=== PATIENT | female | born 1990 | race Caucasian/White ===

== ENCOUNTER → 2019-05-29 | Outpatient (CLI) | payer OTHER ==
[~2019-05-29] MED LIST: DOCU100C37 PO; IBUP-1780 PO; OXYC-465 PO; PREN-98 PO
--- NOTE | 2019-05-29 14:29 | Diagnostic Imaging Report ---
INDICATION: survey. TECHNIQUE: Multiple real-time grayscale images were obtained over the gravid uterus. COMPARISON: None FINDINGS: There is a single live fetus in a breech presentation. heart rate was recorded at 142 BPM. Placenta is anterior. Amniotic fluid volume is normal. survey demonstrates kidneys, bladder and stomach to be unremarkable. brain is unremarkable. There is a four-chamber heart. There is a three-vessel cord with normal insertion. spine is grossly unremarkable but suboptimally visualized today. Biometrical measurements are as follows: Biparietal 4.72 cm, age 20 weeks 2 days. Head circumference 17.20 cm, age 19 weeks 6 days. Abdominal circumference 15.35 cm, age 20 weeks 4 days. Femur length 3.19 cm, age 20 weeks 0 days. Sonographic estimate age: 20 weeks 2 days. Sonographic estimated date of delivery: 10/14/2019. Estimated Weight: 339 gm (+/- 50 gm). LMP percentile: 67%. heart rate: 142 beats per minute. number: 1 of 1. IMPRESSION: Single live IUP 20 weeks 2 days gestational age. Estimated date of confinement sonographically is 10/14/2019. Dictated by: Dictated on workstation # [id number]
== END ==
LOC: RAD 12:10
PROVIDERS: ATTEND Obstetrics & Gynecology
DX: Z36.9 Encounter for antenatal screening, unspecified (principal); Z3A.20 20 weeks gestation of pregnancy
CPT/HCPCS: 76805

== ENCOUNTER 2019-10-06 05:41 | Outpatient (RCR) | payer OTHER ==
[~2019-10-06] VITALS: Wt 83.6 kg
== END 2019-10-06 10:36 | disposition home or self-care (01) ==
LOC: PREOP 05:41
PROVIDERS: ATTEND Obstetrics & Gynecology
DX: Z01.812 Encounter for preprocedural laboratory examination (principal); Z20.828 Contact with and (suspected) exposure to other viral communicable diseases
CPT/HCPCS: 87635

== ENCOUNTER 2019-10-09 04:00 | Inpatient (IN) | payer OTHER ==
[2019-10-09] VITALS (8 sets, daily range): BP systolic 104–122; BP diastolic 59–79
[~2019-10-09] VITALS: Ht 156 cm; Wt 82.6 kg
--- NOTE | 2019-10-09 11:15 | NUR ---
TYLER GONZALES admitted to room 3314-1, with an admitting diagnosis of repeat section, on 10/09/19 from registration via ambulation, accompanied by s/o. TYLER OGNZALES introduced to surroundings, call light, bed controls, phone, TV, temperature control, lights, meal times, smoking policy, visitor policy, side rail policy, bathrooms and showers. Patient Rights given to patient in the handbook. TYLER GONZALES verbalizes understanding that [facility] is not responsible for the loss or damage to any personal effects or valuables that are kept in the patients posession during their hospitalization. The following Patient Care Plans were discussed with the patient: Discharge Planning, pain management, preop and postop care. TYLER GONZALES verbalizes understanding of Interdisciplinary Patient Education. Patient and/or family were informed about the Rapid Response Team and its purpose.
--- NOTE | 2019-10-09 11:30 | NUR ---
this RN remaining at bedside attempting to obtained constant FHR tracing. movement noted by RN and reported by mother. FHR noted periodically during readjustments. 1135 NUrsery RN at bedside attempting to help trace FHR. 8911-5186 small window of tracing of FHR. baseline 135 with acceleration. moderate variability.
--- NOTE | 2019-10-09 12:15 | NUR ---
anesthesia at bedside reviewing poc with use of language line. 1235 this Rn used language line to get consent signed and admission work completed.
[2019-10-09] MEDS ORDERED: FAMOTIDINE 20MG/2ML IV (PEPCID) ONE (12:35)
[2019-10-09] MEDS ORDERED: CITRIC ACID/SOB CIT (BICITRA) 30 ML UDC ONE (12:35)
[2019-10-09] MEDS ORDERED: ceFAZolin 2 GM IV Premixed 50 ML ONE (12:35)
[2019-10-09] MEDS ORDERED: METOCLOPRAMIDE INJ 10 MG/2 ML (REGLAN) ONE (12:35)
[2019-10-09] MEDS ORDERED: DEXAMETHASONE 10 MG/ML (DECADRON) 1 ML VIAL ONE (12:37)
[2019-10-09] MEDS ORDERED: KETOROLAC 30 MG/ML VIAL ONE (12:37)
[2019-10-09] MEDS ORDERED: ONDANSETRON 4 MG/2 ML (SDV) Z0FRAN ONE (12:37)
[2019-10-09] MEDS ORDERED: fentaNYL INJECTION 100 MCG/2 ML AMP ONE (12:37)
[2019-10-09] MEDS ORDERED: BUPIVACAINE 0.5% 30 ML (SENSORCAINE) VIAL ONE (12:37)
[2019-10-09] MEDS ORDERED: OXYTOCIN PRE-MIX DRIP 1,000 ML IV ONE (12:39)
--- NOTE | 2019-10-09 12:42 | History & Physical-OB ---
OB - Chief Complaint & HPI Date/Time Date of Admission: Date of Admission: Oct 09, 2019 at 11:04 Date seen by a Provider: Oct 09, 2019 Time Seen by a Provider: 12:35 Chief Complaint/History OB-Reason for Admission/Chief: Section (2) Hx : 2 Hx Para: 1 Expected Date of Delivery: Oct 17, 2019 Gestational Age in Weeks: 38 Gestational Age in Days: 6 Indication for : malpresentation Admission Nurse Assessment Rev: Yes Allergies and Home Medications Allergies Coded Allergies: No Known Drug Allergies (Unverified , 10/05/19) Home Medications Vit37/Iron/Folic Acid 1 Each Tab.chew, 1 EACH PO DAILY, (Reported) Patient Home Medication List Home Medication List Reviewed: Yes OB - History Hx of Present Care: Yes Ultrasounds: Normal mid trimester US Obstetrical Complications: Gestational Diabetes Medical Complications: None Delivery History Hx Blood Disorders: No Adverse Rxn to Tranfusion: No (N/A) Patient Past Medical History n/a Social History/Family History HIV/AIDS: No Sexually Transmitted Disease: No Immunizations Tetanus Booster (TDap): Less than 5yrs Date of Influenza Vaccine: Jan 28, 2015 OB - Admission Exam Physical Exam HEENT: NCAT Heart: Rhythm Normal Lungs: Clear Abdomen: Gravid Extremities: Normal Reflexes: Normal Heart Rate: 130's Accelerations: Accelerations Present Decelerations: No Decelerations Short Term Variability: Present Chcf Variability: Average (6-25) Contractions on Admission: >10 Minutes Apart Intensity: Mild OB - Assessment/Plan/Diagnosis Assessment Assessment: section Admission Dx 29 yo @ 38.6 weeks Previous GDMA1 Admission Status: Inpatient Order (span 2 midnights) Reason for Inpatient Admission: Repeat Plan Plan: Section ANGELA JUAREZ DO Oct 09, 2019 12:42
[2019-10-09] MEDS ORDERED: ceFAZolin 2 GM IV Premixed 50 ML IV ONE (12:45)
--- NOTE | 2019-10-09 12:45 | NUR ---
DR JUAREZ AT BEDSIDE. BEDSIDE SONOGRAM TO CONFIRM POSITION.
[2019-10-09] MEDS ORDERED: LACTATED RINGERS 1,000 ML IV PRN (12:47)
[2019-10-09] MEDS: LACTATED RINGERS 1,000 ML IV PRN ×2 (12:50→13:19)
--- NOTE | 2019-10-09 12:50 | NUR ---
EFM off. ambulated to OR with surgery staff for section.
[2019-10-09 12:51] LABS: BASOPHILS % (AUTO) 0 % (0-10); EOSINOPHILS # (AUTO) 0.1 10^3/uL (0.0-0.3); EOSINOPHILS % (AUTO) 1 % (0-10); HEMATOCRIT 40 % (35-52); HEMOGLOBIN 13.4 G/DL (11.5-16.0); LYMPHOCYTES # (AUTO) 1.6 X 10^3 (1.0-4.0); LYMPHOCYTES % (AUTO) 15 % (12-44); MEAN CORPUSCULAR HEMOGLOBIN 29 PG (25-34); MEAN CORPUSCULAR HGB CONC 33 G/DL (32-36); MEAN CORPUSCULAR VOLUME 86 FL (80-99); MEAN PLATELET VOLUME 11.1 FL (7.4-10.4); MONOCYTES % (AUTO) 9 % (0-12); NEUTROPHILS # (AUTO) 8.3 X 10^3 (1.8-7.8); NEUTROPHILS % (AUTO) 75 % (42-75); PLATELET COUNT 201 10^3/uL (130-400); RED CELL DISTRIBUTION WIDTH 14.1 % (10.0-14.5); WHITE BLOOD COUNT 11.1 10^3/uL (4.3-11.0)
[2019-10-09] MEDS ORDERED: CITRIC ACID/SOB CIT (BICITRA) 30 ML UDC PO ONE (13:00)
[2019-10-09] MEDS ORDERED: METOCLOPRAMIDE INJ 10 MG/2 ML (REGLAN) IV ONE (13:00)
[2019-10-09] MEDS ORDERED: CATHETER FLUSH 10 ML SYR IV PRN (13:00)
[2019-10-09] MEDS ORDERED: OXYTOCIN PRE-MIX DRIP 500 ML IV SCH (13:07)
[2019-10-09] MEDS ORDERED: ONDANSETRON 4 MG/2 ML (SDV) Z0FRAN IVP PRN (13:15)
[2019-10-09] MEDS: KETOROLAC 30 MG/ML VIAL IV SCH ×2 (13:15→19:59)
[2019-10-09] MEDS ORDERED: MEASLES,MUMPS,RUBELLA 1 EA INJ SC SCH (13:15)
[2019-10-09] MEDS ORDERED: TETANUS,DIPTH,PERTUSS P/F (BOOSTRIX) 0.5 ML VIAL IM SCH (13:15)
[2019-10-09] MEDS ORDERED: HYDROcodone/APAP 5 MG/325 MG (LORTAB) TAB PO PRN (13:15)
--- OUTSIDE RECORDS SUMMARY | 2019-10-09 13:28 | XMS REPORT ---
Author Author Cherie DONOVAN Organization [facility] Address [address] [place] [address] Care Team Providers Care Foiling Machine Operator Name Role Phone BRIANNA DONOVAN Unavailable PROBLEMS Type Condition ICD9-CM Code [id number]-XR Code Onset Dates Condition S tatus SNOMED Code Problem Tension headache G44.209 Active 398 421013 Problem Neuropathy G62.9 Active 315480571 Problem Peptic ulcer disease K27.9 Active 57215132 Problem Abnormal quad screen O28.0 Active 075998495 Problem History of section Z98.89 Ac tive 260589363 Problem Surveillance of contraceptive injection Z30.42 Active 741330092 Problem Gastroesophageal reflux disease without esophagitis K21.9 Active 767499076 Problem Constipation, unspecified constipation type K59.00 Active 22676299 Problem Lumbago with sciatica, right side M54.41 Active 064087534 Problem Lumbago with sciatica, left side M54.42 Active 524613125 Problem Other chronic pain G89.29 Active 8 7534613 Problem Lumbago with sciatica, unspecified side M54.40 Active 582385109 ALLERGIES Substance Reaction Event Type Date Status Penicillin V Potassium rash Drug Allergy July, Activ e ENCOUNTERS Encounter Location Date Diagnosis [place] [address] [place] [id number] [place] [address] Oct, Constipation, unspecified co nstipation type K59.00 and Gastroesophageal reflux disease without esophagitis K21.9 [facility] [address] [place] [id number] [place] [address] July, Well woman exam Z01.419 and Muscle strain of chest wall, initial encounter S29.011A [place] [address] [address] [facility] [id number] [address] [place] [address] July, Neuralgia M79.2 [place] [address] [facility] [id number] [address] [place] [address] July, Lumbago with sciatica, unspe cified side M54.40 and Other chronic pain G89.29 [place] [address] [place] [id number] [place] [address] 10 Apr, 2017 Cough productive of purulent sputum R05 and Hemoptysis R04.2 [place] [address] [place] [id number] [place] [address] Dec, Encounter for screening for infections with a predominantly sexual mode of transmission Z11.3 [place] [address] [place] [id number] [place] [address] Dec, [place] [address] [place] [id number] [place] [address] Nov, Vaginal yeast infection B37. 3 ; Encounter for screening for infections with a predominantly sexual mode of transmission Z11.3 and Routine gynecological examination Z01.419 [place] [address] [place] [id number] [place] [address] Oct, Lumbago with sciatica, right side M54.41 ; Dysuria R30.0 ; Acute cystitis without hematuria N30.00 ; Lumbago with sciatica, left side M54.42 ; Dyshydrosis L30.1 and Vaginal yeast infection B37.3 [place] [address] [place] [id number] [place] [address] Oct, [place] [address] [facility] [id number] [address] [place] [address] Sep, [place] [address] [place] [id number] [place] [address] Sep, Dysuria R30.0 and Yeast infe ction B37.9 [place] [address] [place] [id number] [place] [address] Aug, [facility] [address] [address] 09 Aug, 2016 Other chest pain R07.89 ; Ch est pain, musculoskeletal R07.89 and 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 [address] May, Neuropathy G62.9 ; Peptic ul cer disease K27.9 and ARTURO (secretory otitis media), right H65.91 [facility] [address] [id number] [place] [id number] May, [place] [address] [address] May, Epigastric pain R10.13 ; Naz ropathy G62.9 and Peptic ulcer disease K27.9 [facility] [address] [place] [id number] [place] [id number] Jan, Dental examination Z01.[address] [address] Dec, Encounter for routine gyneco logical examination with Papanicolaou smear of cervix Z01.[address] [address] Dec, Encounter to establish care Z76.89 ; Tension headache G44.209 ; Other fatigue R53.83 and Vertigo R42 [address] [address] Nov, Encounter for Depo-Provera c ontraception Z30.42 [facility] [address] [place] [id number] [place] [id number] Oct, Dental examination Z01.20 [facility] [address] [address] Aug, Encounter for Depo-Provera c ontraception Z30.42 [facility] [address] [address] July, Acute low back pain without sciatica, unspecified back pain laterality M54.5 ; Rectal bleeding K62.5 and Dysuria R30.[address] [address] 03 May, 2015 Routine follow-up Z39.2 ; Encounter for counseling regarding contraception Z30.9 ; Surveillance of contraceptive injection Z30.42 ; Patient is a currently breast-feeding mother Z39.1 ; Chills (without fever) R68.83 and History of section Z98.[address] [address] Apr, Encounter for supervision of normal first , third trimester Z34.03 and 37 weeks gestation of Z3A.[address] [address] Apr, screening for stre ptococcus B Z36 ; 36 weeks gestation of Z3A.36 and Encounter for supervision of normal first , third trimester Z34.[address] [address] Mar, Encounter for supervision of normal first , third trimester Z34.03 and 34 weeks gestation of Z3A.[address] [address] Mar, Encounter for supervision of normal first , third trimester Z34.03 and 32 weeks gestation of Z3A.[address] [address] Jan, Encounter for supervision of normal first , third trimester Z34.03 ; 29 weeks gestation of Z3A.29 and Encounter for immunization Z23 [address] [address] Dec, Encounter for supervision of normal first , second trimester Z34.02 ; Encounter for immunization Z23 and with 25 completed weeks gestation Z3A.[address] [address] Dec, [facility] [address] [id number] [address] [place] [address] Dec, Encounter for supervision of normal first , second trimester Z34.02 ; Supervision of normal first V22.0 and 21 weeks gestation of Z3A.21 [facility] [address] [id number] [address] [place] [address] 28 Nov, 2014 [facility] [address] [id number] [address] [place] [address] 15 Nov, 2014 Abnormal quad screen 796.5 a nd Short cervix 622.5 [place] [address] [id number] [address] [place] [address] 11 Nov, 2014 Supervision of normal first V22.0 [facility] [address] [id number] [address] [place] [address] Nov, Abnormal quad screen 796.5 [facility] [address] [id number] [address] [place] [address] Nov, , normal first V22. 0 [facility] [address] [id number] [address] [place] [address] Oct, [facility] [address] [id number] [address] [place] [address] Oct, Diarrhea 787.91 [facility] [address] [id number] [address] [place] [address] Oct, Diarrhea 787.91 [facility] [address] [id number] [address] [place] [address] Oct, Diarrhea 787.91 and Pregnanc y, normal first V22.0 [facility] [address] [id number] [address] [place] [address] Sep, , normal first V22. 0 ; Pap test, as part of routine gynecological examination V76.2 and Screen for STD (sexually transmitted disease) V74.5 [facility] [address] [facility] [id number] [address] [address] Aug, Supervision of normal first V22.0 [facility] [address] [facility] [id number] [address] [address] Aug, test positive V72. 42 IMMUNIZATIONS No Known Immunizations SOCIAL HISTORY Never Assessed REASON FOR VISIT Numbness-twoodenMA, pt.burning on her lfet side of her face. and tingling on her neck and shoulder on both sides , and pt.states she had a real bad headache PLAN OF CARE Activity Details Follow Up 1 Week, prn Reason:if sympto ms worsen or not improving VITAL SIGNS Height 63 in 2017-08-23 Weight 155.9 lbs 2017-08-23 Temperature 98.1 degrees Fahrenheit 2017-08-23 Heart Rate 64 bpm 2017-08-23 Respiratory Rate 16 2017-08-23 BMI 27.61 kg/m2 2017-08-23 Blood pressure systolic 112 mmHg 2017-08-23 Blood pressure diastolic 72 mmHg 2017-08-23 MEDICATIONS Medication Instructions Dosage Frequency Start Date End Date Duration S lucia PredniSONE 20 mg Orally Once a day 2 tablets 24h July, July, 05 days Active RESULTS No Results PROCEDURES No Known procedures INSTRUCTIONS MEDICATIONS ADMINISTERED No Known Medications MEDICAL (GENERAL) HISTORY Type Description Date Medical History Abnormal quad screen Medical History History of section Medical History Peptic ulcer disease Medical History Lumbago with sciatica, right side Medical History Lumbago with sciatica, left side Medical History Other chronic pain Medical History Neuropathy Surgical History section 04/2015 Hospitalization History Childbirth/surgery
--- OUTSIDE RECORDS SUMMARY | 2019-10-09 13:28 | XMS REPORT ---
Author Author Cherie BERGER [facility] Address [address] [place] [address] Care Team Providers Care Tray Room Worker Name Role Phone SIDRA BERGER Unavailable PROBLEMS Type Condition ICD9-CM Code WDD11-PI Code Onset Dates Condition S tatus SNOMED Code Problem Tension headache G44.209 Active 398 876921 Problem Neuropathy G62.9 Active 458559591 Problem Peptic ulcer disease K27.9 Active 80488434 Problem Abnormal quad screen O28.0 Active 659333807 Problem History of section Z98.89 Ac tive 221713953 Problem Surveillance of contraceptive injection Z30.42 Active 429742328 Problem Gastroesophageal reflux disease without esophagitis K21.9 Active 798958386 Problem Constipation, unspecified constipation type K59.00 Active 60711824 Problem Lumbago with sciatica, right side M54.41 Active 931634754 Problem Lumbago with sciatica, left side M54.42 Active 718802103 Problem Other chronic pain G89.29 Active 8 6052556 Problem Lumbago with sciatica, unspecified side M54.40 Active 162688641 ALLERGIES Substance Reaction Event Type Date Status Penicillin V Potassium rash Drug Allergy July, Activ e ENCOUNTERS Encounter Location Date Diagnosis [place] [id number] [facility] [id number] [address] [place] [address] Oct, Constipation, unspecified co nstipation type K59.00 and Gastroesophageal reflux disease without esophagitis K21.9 [facility] [address] [facility] [id number] [address] [place] [address] July, Well woman exam Z01.419 and Muscle strain of chest wall, initial encounter S29.011A [place] [address] [facility] [id number] [address] [place] [address] July, Neuralgia M79.2 [place] [address] [facility] [id number] [address] [place] [address] July, Lumbago with sciatica, unspe cified side M54.40 and Other chronic pain G89.29 [place] [address] [facility] [id number] [address] [place] [address] 10 Apr, 2017 Cough productive of purulent sputum R05 and Hemoptysis R04.2 [place] [address] [place] [id number] [place] [address] Dec, Encounter for screening for infections with a predominantly sexual mode of transmission Z11.3 [place] [address] [place] [id number] [place] [address] Dec, [place] [address] [place] [id number] [place] [address] Nov, Vaginal yeast infection B37. 3 ; Encounter for screening for infections with a predominantly sexual mode of transmission Z11.3 and Routine gynecological examination Z01.419 [place] [address] [place] [id number] [place] [address] Oct, Lumbago with sciatica, right side M54.41 ; Dysuria R30.0 ; Acute cystitis without hematuria N30.00 ; Lumbago with sciatica, left side M54.42 ; Dyshydrosis L30.1 and Vaginal yeast infection B37.3 [place] [address] [facility] [id number] [address] [place] [address] Oct, [facility] [address] [facility] [id number] [address] [place] [address] Sep, [place] [address] [place] [id number] [place] [address] Sep, Dysuria R30.0 and Yeast infe ction B37.9 [facility] [address] 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 [place] [address] [address] Aug, [address] [address] May, Neuropathy G62.9 ; Peptic ul cer disease K27.9 and ARTURO (secretory otitis media), right H65.91 [facility] [address] [id number] [place], [facility] [id number] May, [place] [address] [place] [id number] [place] [address] May, Epigastric pain R10.13 ; Naz ropathy G62.9 and Peptic ulcer disease K27.9 [facility] [address] [id number] Jan, Dental examination Z01.[address] [address] Dec, Encounter for routine gyneco logical examination with Papanicolaou smear of cervix Z01.[address] [address] Dec, Encounter to establish care Z76.89 ; Tension headache G44.209 ; Other fatigue R53.83 and Vertigo R42 [address] [address] Nov, Encounter for Depo-Provera c ontraception Z30.42 [facility] [address] [place] [id number] [place] [id number] Oct, Dental examination Z01.20 [facility] [address] [place] [address] Aug, Encounter for Depo-Provera c ontraception Z30.42 [facility] [address] [address] July, Acute low back pain without sciatica, unspecified back pain laterality M54.5 ; Rectal bleeding K62.5 and Dysuria R30.[address] [address] 03 May, 2015 Routine follow-up Z39.2 ; Encounter for counseling regarding contraception Z30.9 ; Surveillance of contraceptive injection Z30.42 ; Patient is a currently breast-feeding mother Z39.1 ; Chills (without fever) R68.83 and History of section Z98.[address] [address] Apr, Encounter for supervision of normal first , third trimester Z34.03 and 37 weeks gestation of Z3A.[address] [address] Apr, screening for stre ptococcus B Z36 ; 36 weeks gestation of Z3A.36 and Encounter for supervision of normal first , third trimester Z34.[address] [address] Mar, Encounter for supervision of normal first , third trimester Z34.03 and 34 weeks gestation of Z3A.[address] [address] Mar, Encounter for supervision of normal first , third trimester Z34.03 and 32 weeks gestation of Z3A.[address] [address] Jan, Encounter for supervision of normal first , third trimester Z34.03 ; 29 weeks gestation of Z3A.29 and Encounter for immunization Z23 [address] [address] Dec, Encounter for supervision of normal first , second trimester Z34.02 ; Encounter for immunization Z23 and with 25 completed weeks gestation Z3A.[address] [place] [address] Dec, [facility] [address] [id number] [address] [place] [address] Dec, Encounter for supervision of normal first , second trimester Z34.02 ; Supervision of normal first V22.0 and 21 weeks gestation of Z3A.21 [facility] [address] [id number] [address] [place] [address] Nov, [facility] [address] [id number] [address] [place] [address] 15 Nov, 2014 Abnormal quad screen 796.5 a nd Short cervix 622.5 [place] [address] [facility] [id number] [address] [place] [address] 11 Nov, 2014 Supervision of normal first V22.0 [facility] [address] [id number] [address] [place] [address] Nov, Abnormal quad screen 796.5 [facility] [address] [id number] [address] [place] [address] Nov, , normal first V22. 0 [facility] [address] [id number] [address] [place] [address] Oct, [facility] [address] [facility] [id number] [address] [place] [address] Oct, Diarrhea 787.91 [facility] [address] [facility] [id number] [address] [place] [address] Oct, Diarrhea 787.91 [facility] [address] [facility] [id number] [address] [place] [address] Oct, Diarrhea 787.91 and Pregnanc y, normal first V22.0 [facility] [address] [id number] [address] [place] [address] Sep, , normal first V22. 0 ; Pap test, as part of routine gynecological examination V76.2 and Screen for STD (sexually transmitted disease) V74.5 [facility] [address] [facility] [id number] [place] [address] Aug, Supervision of normal first V22.0 [facility] [address] [facility] [id number] [place] [address] Aug, test positive V72. 42 IMMUNIZATIONS No Known Immunizations SOCIAL HISTORY Never Assessed REASON FOR VISIT Well Woman Exam -- michelle whiteside, patient states she has pain on rt armpit , sta shorty she has had this for a long time but the lump is getting bigger PLAN OF CARE Activity Details Follow Up 1 Year Reason:PAP VITAL SIGNS Height 63 in 2017-08-29 Weight 154.0 lbs 2017-08-29 Temperature 98.0 degrees Fahrenheit 2017-08-29 Heart Rate 70 bpm 2017-08-29 Respiratory Rate 18 2017-08-29 BMI 27.28 kg/m2 2017-08-29 Blood pressure systolic 116 mmHg 2017-08-29 Blood pressure diastolic 68 mmHg 2017-08-29 MEDICATIONS Medication Instructions Dosage Frequency Start Date End Date Duration S tatus Ibuprofen 800 MG Orally Three times a day as needed 1 tab let with food or milk as needed 30 Active RESULTS No Results PROCEDURES No Known [...]
--- OUTSIDE RECORDS SUMMARY | 2019-10-09 13:28 | XMS REPORT ---
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 [place] [employer] Address [address] [address] Care Team Providers Care Filter Press Tender Name Role Phone SHELLY PEREZ Unavailable Unavailable ADRIANNA, ANGEL Unavailable ADRIANNA, ANGEL Unavailable Unavailable SEAN GRAHAM Unavailable MADL, RAO Unavailable Unavailable NO, LOCAL PHYSICIAN Unavailable Unavailable REINIER ELLISE Unavailable ELLIS, VANDANA Unavailable ELLIS VANDANA Unavailable MADL, RAO Unavailable MADL, RAO Unavailable MADL, RAO Unavailable MADL, RAO Unavailable MADL, RAO Unavailable SIDRA BERGER Unavailable BRIANNA DONOVAN Unavailable SIDRA BERGER Unavailable SIDRA BERGER Unavailable SIDRA BERGER Unavailable Unavailable JARED, ROBBIE S Unavailable Unavailable ANGEL RODAS N Unavailable Unavailable FELECIARC THOMAS APRN A Unavailable Unavailable TRISTON CEE MD Unavailable Unavailable ANGEL RODAS MD Unavailable Unavailable ANGELA JUAREZ DO Unavailable Unavailable DO Armin GRAHAM PCP Unavailable Unavailable Unavailable Unavailable Unavailable Unavailable Unavailable Unavailable Unavailable Unavailable Unavailable Unavailable Allergies The data below is from unstructured sources Allergen Type Severity Reaction Last Updated No Known Drug Allergies 12/29/12 No known allergies. Encounters Encounter Date Encounter Type Encounter Diagnosis Care Provider Facility Start: Discharged Recurring DO SEAN leyva Via 10-06-2019 Work Phone: [place] [phone] End: 10-06-2019 Start: Patient encounter ANGELA JUAREZ DO [facility] 10-06-2019 [facility] End: 10-06-2019 Start: Patient encounter ANGEL Leyva [facility] 06-02-2019 procedure [facility] Start: Patient encounter ANGELA JUAREZ DO [facility] [place] 05-29-2019 [facility] Start: Patient encounter ANGEL Leyva [facility] 05-26-2019 procedure [facility] Start: Patient encounter NA NA [facility] ealt 03-18-2019 procedure [facility] ([id number]) Start: Patient encounter ANGEL RODAS [facility] ealt 01-20-2019 procedure [facility] (49105) Start: Patient encounter NA NA [facility] ealt 12-22-2018 procedure [facility] (40206) Start: Patient encounter NA NA [facility] 11-10-2018 procedure [facility] (63102) Start: [facility] encounter NA [facility] 11-10-2018 [facility] (99485) Start: Patient encounter NA NA [facility] 09-15-2018 procedure [facility] (43390) Start: Patient encounter ROBBIE JARED [facility]2018 [facility] ([id number]) Start: [facility] SIDRA Bond [facility] 11-04-2017 unspecified Start: Patient encounter ROBBIE JARED [facility] ealt 08-23-2017 procedure [facility] (24221) Start: Patient encounter ROBBIE JARED [facility] 08-02-2017 procedure Center [facility] (01607) Start: Patient encounter NA NA [facility] 04-10-2017 [facility] (69449) Start: Patient encounter ANGEL RODAS MD [facility] [place] 12-14-2014 [facility] Start: Patient encounter RC [employer]ZQUIER[employer] PRO[employer] SPECIALIST [facility] [place] 10-18-2014 [facility] Start: Patient encounter TRISTON CEE MD [facility] Via [facility] 07-30-2014 [facility] Encounter for ANGELA JUAREZ [facility] Medical Equipment The data below is from unstructured sourcesNo Medical Equipment Information available Goals Date Patient Goal Desired Activity/St ate Immunizations Immunizatio Immunization Notes Care Provider Facility n Date 02-02-2019 influenza, seasonal, NA NA [facility] (50461) Interventions No Information Medications Medication Drug Dates Sig Sig (Original) Class(es) (Normalized) esomeprazole 40 mg Proton Start: take 1 capsule Esom eprazole Magnesium 40 mg Orally Once delayed release oral Pump 11-04-2017 by mouth once a d ay on an empty stomach 1 capsule 06 capsule Inhibitor daily Oct, 2017 30 da y(s) Active (1 source) naproxen 500 mg oral Nonsteroid Start: take 1 tablet Nap roxen 500 mg Orally every 12 hrs 1 tablet al 08-02-2017 by mouth every tablet with food or milk as needed 12h (1 source) Anti-infla twelve hours at July, Sep, 30 days Active mmatory End: mealtime as Drug 10-01-2017 needed Polyethylene Glycol 3350 Start: Polyethylene Glycol 3350 17 gm/dose 17 gm/dose 11-04-2017 Orally every other day until BM are (1 source) regular, then prn 1 capful 06 Oct, 2017 End: Nov, 14 days Active 12-16-2017 predniSONE 20 mg oral Start: take 2 tablets PredniS ONE 20 mg Orally Once a day 2 tablet 08-23-2017 by mouth once tablets 24h July, July, 05 (1 source) daily days Active End: 08-28-2017 Vit37/Iron/Folic A [place] Active 1 Vit37/Iron/Folic Acid ORAL Daily (1 source) Payers The data below is from unstructured sources Payer Name Policy Number Subscriber Name Relationship Unknown Tyler Baumann Plan of Treatment Date Care Activity Detail Author Coronavirus Ab Bond [facility] [Units/volume] in [facility] ([id number]) Patient referral Bond [facility] ([id number]) Problems Active Problems Problem Problem Date Last Documented Episodic/Chr Provider Classificati Recorded Date onic on Esophageal Gastroesophageal reflux disease Chronic SIDRA disorders without esophagitis ; Translations: CELINE (8 sources) [Gastro-esophageal reflux disease without esophagitis] Other Phone: Female Infertility, female, of unspecified 10-06-2019 Chr onic TRISTON CEE infertility origin (4 sources) Residual 20 weeks gestation of 10-06-2019 Episodi c ANGELA codes; FENECH DO unclassified (5 sources) Past or Other Problems Problem Problem Date Last Documented Episodic/Chr Provider Classificati Recorded Date onic on Other Constipation, unspecified ; Episodic SIDRA gastrointest Translations: [ - Constipation, [place] inal unspecified constipation type disorders K59.00] Other (4 sources) Phone: Other Constipation ; Translations: Episodic SIDRA gastrointest [Constipation, unspecified CELINE inal constipation type] disorders Other (4 sources) Phone: Procedures The data below is from unstructured sources Procedure Coding System Code Date Office Visit, Est Pt., Level 4 CPT-4 07417 Nov 16, 2014 Results Test Name Value Interpreta Reference Facilit Date tion Range y Time not yet categorized on null BLO Negative Communi ty [facility] (30742) KET 12/18~clear~yellow~None~Negative~Negative~Neg Invalid Communi ative Interpreta ty tion Code [facility] (52694) Lot # [id number] Invalid Communi Interpreta ty tion Code [facility] (82551) SG 1.015 Invalid Communi Interpreta ty tion Code [facility] (78015) URO 0.2 Invalid Communi Interpreta ty tion Code [facility] (78357) laboratory on null pH (Bld) 7.0 [pH] Invalid Communi Interpreta ty tion Code [facility] (54860) laboratory on 2019-10-09 Basophils (Bld) 0.0 10*3/uL Negative 0.0-0.1 PENDING 10-08 [#/Vol] 10*3/uL LOCATIO [facility] 07:40-0 (62244) 400 Basophils/100 WBC 0 % Negative 0-10 % PENDING 10-08 (Bld) LOCATIO 020 [facility] 07:40-0 (85753) 400 Eosinophils (Bld) 0.1 10*3/uL Negative 0.0-0.3 PENDING 12-31 [#/Vol] 10*3/uL LOCATIO 020 [facility] 07:40-0 (45587) 400 Eosinophils/100 WBC 1 % Negative 0-10 % PENDING 12-31 (Bld) LOCATIO 020 [facility] 07:40-0 (71356) 400 Erythrocyte 14.1 % Negative 10.0-14.5 PENDING distribution width % [facility] (RBC) [Ratio] [facility] 07:40-0 (20544) 400 Hematocrit (Bld) 40 % Negative 35-52 % PENDING [Volume fraction] LOCATIO 020 [facility] 07:40-0 (12831) 400 Hemoglobin (Bld) 13.4 g/dL Negative 11.5-16.0 PENDING [Mass/Vol] g/[facility] 07:40-0 (27834) 400 Lymphocytes (Bld) 1.6 10*3/uL Negative 1.0-4.0 PENDING 12-31 [#/Vol] 10*3 LOCATIO 020 [facility] 07:40-0 (46485) 400 Lymphocytes/100 WBC 15 % Negative 12-44 % PENDING 12-31 (Bld) LOCATIO 020 [facility] 07:40-0 (31823) 400 MCH (RBC) [Entitic 29 pg Negative 25-34 pg PENDING -1 0-2 mass] LOCATIO 020 [facility] 07:40-0 (14386) 400 MCHC (RBC) 33 g/dL Negative 32-36 g/dL PENDING [Mass/Vol] LOCATIO 020 [facility] 07:40-0 (35538) 400 MCV (RBC) [Entitic 86 Negative 80-99 PENDING 07-1 0-2 vol] [foz_us] LOCATIO 020 [facility] 07:40-0 (10804) 400 Monocytes (Bld) 1.0 10*3/uL Negative 0.0-1.0 PENDING 10-08 [#/Vol] 10*3 [facility] 020 [facility] 07:40-0 (34339) 400 Monocytes/100 WBC 9 % Negative 0-12 % PENDING 10-08 (Bld) [facility] 020 [facility] 07:40-0 (95529) 400 Neutrophils (Bld) 8.3 10*3/uL High 1.8-7.8 PENDING 12-31 [#/Vol] 10*3 LOCATIO 020 N [facility] 07:40-0 (83934) 400 Neutrophils/100 WBC 75 % Negative 42-75 % PENDING 12-31 (Bld) LOCATIO 020 [facility] 07:40-0 (06773) 400 Platelet mean volume 11.1 High 7.4-10.4 PENDING (Bld) [Entitic vol] [foz_us] LOCATIO 020 [facility] 07:40-0 (47701) 400 Platelets (Bld) 201 10*3/uL Negative 130-400 PENDING 10-08 [#/Vol] 10*3/uL LOCATIO 020 [facility] 07:40-0 (20908) 400 RBC (Bld) [#/Vol] 4.69 10*6/uL Negative 4.35-5.85 PENDING 10*6/uL LOCATIO 020 [facility] 07:40-0 (84846) 400 WBC (Bld) [#/Vol] 11.1 10*3/uL High 4.3-11.0 PENDING 10*3/uL LOCATIO 020 [facility] 07:40-0 (48296) 400 laboratory on 2019-10-06 Coronavirus Ab Qn Negative Invalid Negative PENDING 10-05 (S) Interpreta LOCATIO 020 tion Code N [facility] 04:05-0 (58160) 400 laboratory on 2019-03-18 Beta HCG ( Positive Abnormal See Note: Commun i test) [facility] (70270) HCG.beta subunit Qn [id number] m[IU]/mL High mIU/mL Co mmuni ty [facility] (75807) not yet categorized on 2018-09-15 CLINICAL Normal Communi INFORMATION: ty [facility] (04855) COMMENT Invalid Communi Interpreta ty tion Code [facility] (90920) Date of previous Normal Communi biopsy ty [facility] (96669) Date of previous PAP Normal Communi smear ty [facility] (37910) Last menstrual Normal Communi period start date [facility] (28352) laboratory on 2018-09-15 Cat Tender Cyto Normal Communi stain Nom (Cvx/Vag) ty [ID] [facility] (60177) Microscopic Normal Communi observation Cyto ty stain Nom (Cvx) [facility] (69909) Specimen source Cyto Endocervix Normal Communi stain Nom (Cvx/Vag) ty [facility] (58786) Statement of Normal Communi adequacy Cyto stain ty (Cvx/Vag) [Interp] [facility] (00793) not yet categorized on 2017-04-10 Control neg~neg~+ Invalid Communi Interpreta ty tion Code [facility] (48128) Exp date 05/2019 Invalid Communi Interpreta ty tion Code [facility] (02249) Lot # [id number] Invalid Communi Interpreta ty tion Code [facility] (33397) laboratory on 2016-12-30 Bacteria identified Note Invalid Not Aer cx Nom (Genital Interpreta Availab 017 specimen) tion Code le 13:49-0 (02450) 400 laboratory on 2016-05-05 Albumin [Mass/Vol] 4.9 g/dL Invalid 3.5-5.5 Not 02-0 4-2 Interpreta g/dL Availab 017 tion Code le 09:0 (81653) 500 Albumin/Globulin 2.1 {ratio} Invalid 1.1-2.5 Not 02-0 4-2 [Mass ratio] Interpreta Availab 017 tion Code le 09:0 (13279) 500 ALP [Catalytic 134 U/L High 39-117 Not 04-2 activity/Vol] IU/L Availab 017 le 09:11-0 (32629) 500 ALT [Catalytic 17 U/L Invalid 0-32 IU/L Not 2 activity/Vol] Interpreta Availab 017 tion Code le 09:11-0 (93063) 500 AST [Catalytic 24 U/L Invalid 0-40 IU/L Not activity/Vol] Interpreta Availab 017 tion Code le 09:11-0 (65588) 500 Basophils (Bld) 0.0 10*3/uL Invalid 0.0-0.2 Not 05-052 [#/Vol] Interpreta x10E3/uL Availab 017 tion Code le 07:42-0 (97891) 500 Basophils/100 WBC 0 % Invalid % Not 05-052 (Bld) Interpreta Availab 017 tion Code le 07:42-0 (07150) 500 Bilirubin [Mass/Vol] 0.5 mg/dL Invalid 0.0-1.2 Not 2 Interpreta mg/dL Availab 017 tion Code le 09:11-0 (99020) 500 Calcium [Mass/Vol] 9.2 mg/dL Invalid 8.7-10.2 Not 02-0 4-2 Interpreta mg/dL Availab 017 tion Code le 09:11-0 (37902) 500 Chloride [Moles/Vol] 100 mmol/L Invalid 96-106 Not 0 2-04-2 Interpreta mmol/L Availab 017 tion Code le 07:56-0 (57398) 500 CO2 [Moles/Vol] 23 mmol/L Invalid 18-29 Not 04-2 Interpreta mmol/L Availab 017 tion Code le 09:11-0 (56030) 500 Creatinine 0.56 mg/dL Low 0.57-1.00 Not 04-2 [Mass/Vol] mg/dL Availab 017 le 09:11-0 (02643) 500 Eosinophils (Bld) 0.1 10*3/uL Invalid 0.0-0.4 Not -2 [#/Vol] Interpreta x10E3/uL Availab 017 tion Code le 07:42-0 (58148) 500 Eosinophils/100 WBC 1 % Invalid % Not 07-01 (Bld) Interpreta Availab 017 tion Code le 07:42-0 (98228) 500 Erythrocyte 13.6 % Invalid 12.3-15.4 Not distribution width Interpreta % Availab 017 (RBC) [Ratio] tion Code le 07:42-0 (00405) 500 GFR/1.73 sq 150 mL/min/{1.73_m2} Invalid >59 Not 2 M.predicted among Interpreta mL/min/1.7 Availab 017 blacks MDRD tion Code 3 le 09:11-0 (S/P/Bld) [Vol (65712) 500 rate/Area] GFR/1.73 sq 130 mL/min/{1.73_m2} Invalid >59 Not M.predicted among Interpreta mL/min/1.7 Availab 017 non-blacks MDRD tion Code 3 le 09:11-0 (S/P/Bld) [Vol (73185) 500 rate/Area] Globulin (S) 2.3 g/dL Invalid 1.5-4.5 Not [Mass/Vol] Interpreta g/dL Availab 017 tion Code le 09:11-0 (44460) 500 Glucose [Mass/Vol] 84 mg/dL Invalid 65-99 Not 02-0 4-2 Interpreta mg/dL Availab 017 tion Code le 09:11-0 (90523) 500 Hematocrit (Bld) 43.0 % Invalid 34.0-46.6 Not [Volume fraction] Interpreta % Availab 017 tion Code le 07:42-0 (05781) 500 Hemoglobin (Bld) 14.3 g/dL Invalid 11.1-15.9 Not [Mass/Vol] Interpreta g/dL Availab 017 tion Code le 07:42-0 (71260) 500 Immature 0.0 10*3/uL Invalid 0.0-0.1 Not 2 granulocytes (Bld) Interpreta x10E3/uL Availab 017 [#/Vol] tion Code le 07:42-0 (57756) 500 Immature 0 % Invalid % Not granulocytes/100 WBC Interpreta Availab 017 (Bld) tion Code le 07:42-0 (40872) 500 Lymphocytes (Bld) 1.6 10*3/uL Invalid 0.7-3.1 Not 07-01 [#/Vol] Interpreta x10E3/uL Availab 017 tion Code le 07:42-0 (12902) 500 Lymphocytes/100 WBC 19 % Invalid % Not 07-01 (Bld) Interpreta Availab 017 tion Code le 07:42-0 (26033) 500 MCH (RBC) [Entitic 28.3 pg Invalid 26.6-33.0 Not 02-0 4-2 mass] Interpreta pg Availab 017 tion Code le 07:42-0 (86588) 500 MCHC (RBC) 33.3 g/dL Invalid 31.5-35.7 Not [Mass/Vol] Interpreta g/dL Availab 017 tion Code le 07:42-0 (66095) 500 MCV (RBC) [Entitic 85 fL Invalid 79-97 fL Not 02-0 4-2 vol] Interpreta Availab 017 tion Code le 07:42-0 (40876) 500 Monocytes (Bld) 0.7 10*3/uL Invalid 0.1-0.9 Not 05-05 [#/Vol] Interpreta x10E3/uL Availab 017 tion Code le 07:42-0 (00052) 500 Monocytes/100 WBC 8 % Invalid % Not 05-05 (Bld) Interpreta Availab 017 tion Code le 07:42-0 (42149) 500 Neutrophils (Bld) 6.1 10*3/uL Invalid 1.4-7.0 Not 07-01 [#/Vol] Interpreta x10E3/uL Availab 017 tion Code le 07:42-0 (13253) 500 Neutrophils/100 WBC 72 % Invalid % Not 07-01 (Bld) Interpreta Availab 017 tion Code le 07:42-0 (46949) 500 Platelets (Bld) 265 10*3/uL Invalid 150-379 Not 05-052 [#/Vol] Interpreta x10E3/uL Availab 017 tion Code le 07:42-0 (83994) 500 Potassium 4.0 mmol/L Invalid 3.5-5.2 Not 05-05- [Moles/Vol] Interpreta mmol/L Availab 017 tion Code le 07:59-0 (05406) 500 Protein [Mass/Vol] 7.2 g/dL Invalid 6.0-8.5 Not 02-0 4-2 Interpreta g/dL Availab 017 tion Code le 09:11-0 (82992) 500 RBC (Bld) [#/Vol] 5.06 10*6/uL Invalid 3.77-5.28 Not Interpreta x10E6/uL Availab 017 tion Code le 07:42-0 (95274) 500 Sodium [Moles/Vol] 141 mmol/L Invalid 134-144 Not 07-01 Interpreta mmol/L Availab 017 tion Code le 07:59-0 (70428) 500 Urea nitrogen 7 mg/dL Invalid 6-20 mg/dL Not [Mass/Vol] Interpreta Availab 017 tion Code le 09:11-0 (53961) 500 Urea 13 mg/mg Invalid 8-20 Not 05-05-2 nitrogen/Creatinine Interpreta Availab 017 [Mass ratio] tion Code le 09:11-0 (57493) 500 WBC (Bld) [#/Vol] 8.5 10*3/uL Invalid 3.4-10.8 Not 07-01 Interpreta x10E3/uL Availab 017 tion Code le 07:42-0 (61305) 500 Social History Date Type Detail Facility Start: Tobacco smoking status NHIS Never smoked tobac co Bond [facility] 10-05-2019 (finding) [facility] (31957) Start: Denies Bond [facility] 10-05-2019 [facility] (98050) Start: Never a Smoker Bond [facility] 10-05-2019 [facility] (01934) Start: Denies Use Bond [facility] 04-23-2015 [facility] (46832) Start: No Bond [facility] 04-23-2015 [facility] (23723) Start: Sex Assigned At Female [facility] 1990 [facility] (13795) Vital Signs Date Time Vital Sign Value Performing Clinician Facil jenelle 11-04-2017 Body height 160.02 cm [facility] 14:00-0400 Other Phone: [facility] [place] (55058) 11-04-2017 Body mass index 23.2 kg/m2 [facility] 14:00-0400 (BMI) [Ratio] Other Phone: [facility] [place] (82356) 11-04-2017 [facility] Other Phone: [facility] [place] (84319) 11-04-2017 Body weight 59.42 kg [facility] 14:00-0400 Other Phone: [facility] [place] (15025) 08-29-2017 Body height 160.02 cm [facility] 14:40-0400 Other Phone: [facility] [place] (72004) 08-29-2017 Body mass index 27.28 kg/m2 [facility] 14:40-0400 (BMI) [Ratio] Other Phone: [facility] [place] (61129) 08-29-2017 Body [facility] 98 [facility]degF[facility] 14:40-[facility] Other Phone: [facility] [place] (29033) 08-29-2017 Body weight 69.85 kg [facility] 14:40-0400 Other Phone: [facility] [place] (56793) 08-23-2017 Body height 160.02 cm [facility] 16:40-0400 Other Phone: [facility] [place] (70728) 08-23-2017 Body mass index 27.61 kg/m2 [facility] 16:40-0400 (BMI) [Ratio] Other Phone: [facility] [place] (13826) 08-23-2017 Body temperature 98.1 [degF] [facility] 16:40-0400 Other Phone: [facility] [place] (12556) 08-23-2017 Body weight 70.72 kg [facility] 16:40-0400 Other Phone: [facility] [place] (24134) 08-02-2017 Body height 160.02 cm [facility] 10:20-0400 Other Phone: [facility] [place] (57762) 08-02-2017 Body mass index 27.37 kg/m2 [facility] 10:20-0400 (BMI) [Ratio] Other Phone: [facility] [place] (49822) 08-02-2017 Body temperature 98.7 [degF] [facility] 10:20-0400 Other Phone: [facility] [place] (06374) 08-02-2017 Body weight 70.08 kg [facility] 10:20-0400 Other Phone: [facility] [place] (03432) Functional Status The data below is from unstructured sources Query Response Date Cristobal rded Patient Orientation Person Place Time Situation Normal For Age April 24, 2015 5:17pm No Functional Status information available Mental Status The data below is from unstructured sourcesNo Mental Status Information Available Evaluation note Note Date & Note Facility Type Evaluation No Assessments Information Available A scension [facility] (54983) Summary Purpose eClinicalWorks SubmissioneClinicalWorks SubmissioneClinicalWorks SubmissioneClinicalWorks SubmissioneClinicalWorks SubmissioneClinicalWorks SubmissioneClinicalWorks SubmissioneClinicalWorks SubmissioneClinicalWorks SubmissioneClinicalWorks SubmissioneClinicalWorks SubmissioneClinicalWorks SubmissioneClinicalWorks SubmissioneClinicalWorks SubmissioneClinicalWorks SubmissioneClinicalWorks Submission Advance Directives Directive Response Recor ded Date/Time Advance Directives No 10:45pm Health Care Power of Plastic Joint Maker No 04/22/15 10:45pm Organ Donor No 04/22/15 10:45pm Resuscitation Status Full Code 04/22/15 10:45pm Directive Response Recor ded Date Advance Directives N 3:27pm Health Care Power of Plastic Joint Maker N 12/29/12 3:27pm Organ Donor N 12/29/12 3 :27pm Advance Directive Response Recorded Date/Time Advance Directives No 2019 11:09am Health Care Power of Plastic Joint Maker No October 05, 2019 11:09am Organ Donor No April 022015 10:45pm Resuscitation Status Full Code October 05, 2019 11:09am Discharge Instructions Patient Instructions Physician Instructions New, Converted or Re-Newed RX: RX on Chart Patient Instructions: As instructed Return to The Hospital For: As instructed Discharge Diet: No Restrictions Activity as Tolerated: No Follow Up Appt: RTC Wednesday, April 29, 2015 at 930 a.m. with me for incision check. Call to make follow up appt. with Dr. Rodas in 6 weeks. Wound Care: Remove diana, apply benzoin and steri strips. Activity Per routine post instructions. Diet as tolerated Patient may shower or tub bathe as desired. Continue home meds Care Plan Patient Instructions:: As instructed Patient Instructions Physician Instructions New, Converted or Re-Newed RX: RX on Chart Patient Instructions: As instructed Return to The Hospital For: As instructed Discharge Diet: No Restrictions Activity as Tolerated: No Follow Up Appt: RTC Wednesday, April 29, 2015 at 930 a.m. with me for incision check. Call to make follow up appt. with Dr. Rodas in 6 weeks. Wound Care: Remove diana, apply benzoin and steri strips. Activity Per routine post instructions. Diet as tolerated Patient may shower or tub bathe as desired. Continue home meds Care Plan Patient Instructions:: As instructed Additional Source Comments This clinical document has been generated using [employer] software that has been certified by the Office of the National Coordinator for Health Information Technology (ONC 15.99.04.3023.Diam.31.00.0.249110) and the National Committee for Commercial [employer] Estate Paralegal (NCQA, as an eMeasure certified technology). FOR RECORDS PERTAINING TO PATIENTS WHO ARE OR HAVE BEEN ENROLLED IN A CHEMICAL D EPENDENCY/SUBSTANCE ABUSE PROGRAM, SOME INFORMATION MAY BE OMITTED. This clinica l summary was aggregated from multiple sources. Caution should be exercised in using it in the provision of clinical care. This summary normalizes information from multiple sources, and as a consequence, information in this document may ma terially change the coding, format and clinical context of patient data. In sisi tion, data may be omitted in some cases. CLINICAL DECISIONS SHOULD BE BASED ON T HE PRIMARY CLINICAL RECORDS. [employer] provides no warranty or guara ntee of the accuracy or completeness of information in this document.The followi ng information is based on time limited clinical information UNRECOGNIZED CONTENT PROVIDED BELOW FOR UNRECOGNIZED SECTION REASON FOR VISIT Bloating and pain in the stomach every morning , going to the bathroom 5 times a day x 3 weeks -- michelle whiteside
--- OUTSIDE RECORDS SUMMARY | 2019-10-09 13:28 | XMS REPORT ---
Author Author Cherie BERGER Organization [facility] Address [address] [place] [address] Care Team Providers Care Lumber Sales Supervisor Name Role Phone SIDRA BERGER Unavailable PROBLEMS Type Condition ICD9-CM Code ALS14-VZ Code Onset Dates Condition S tatus SNOMED Code Problem Tension headache G44.209 Active 398 383947 Problem Neuropathy G62.9 Active 386854140 Problem Peptic ulcer disease K27.9 Active 93409807 Problem Abnormal quad screen O28.0 Active 156452905 Problem History of section Z98.89 Ac tive 697847053 Problem Surveillance of contraceptive injection Z30.42 Active 989686452 Problem Gastroesophageal reflux disease without esophagitis K21.9 Active 442039582 Problem Constipation, unspecified constipation type K59.00 Active 90102591 Problem Lumbago with sciatica, right side M54.41 Active 108836262 Problem Lumbago with sciatica, left side M54.42 Active 072270097 Problem Other chronic pain G89.29 Active 8 5868374 Problem Lumbago with sciatica, unspecified side M54.40 Active 007603036 ALLERGIES Substance Reaction Event Type Date Status Penicillin V Potassium rash Drug Allergy Oct, Activ e ENCOUNTERS Encounter Location Date Diagnosis [place] [address] [facility] [id number] [address] [place] [address] Oct, Constipation, unspecified co nstipation type K59.00 and Gastroesophageal reflux disease without esophagitis K21.9 [facility] [address] [facility] [id number] [address] [place] [address] July, Well woman exam Z01.419 and Muscle strain of chest wall, initial encounter S29.011A [place] [address] [facility] [id number] [address] [place] [address] July, Neuralgia M79.2 [place] [address] [address] [facility] [id number] [address] [place] [address] July, Lumbago with sciatica, unspe cified side M54.40 and Other chronic pain G89.29 [place] [address] [address] [facility] [id number] [address] [place] [address] 10 Apr, 2017 Cough productive of purulent sputum R05 and Hemoptysis R04.2 [place] [address] [address] [facility] [id number] [address] [place] [phone] Dec, Encounter for screening for infections with a predominantly sexual mode of transmission Z11.3 [place] [address] [place] [id number] [place] [address] Dec, [place] [address] [address] [place] [id number] [place] [address] Nov, Vaginal yeast infection B37. 3 ; Encounter for screening for infections with a predominantly sexual mode of transmission Z11.3 and Routine gynecological examination Z01.419 [place] [address] [place] [id number] [address] [place] [address] Oct, Lumbago with sciatica, right side M54.41 ; Dysuria R30.0 ; Acute cystitis without hematuria N30.00 ; Lumbago with sciatica, left side M54.42 ; Dyshydrosis L30.1 and Vaginal yeast infection B37.3 [place] [address] [address] [facility] [id number] [address] [place] [address] Oct, [place] [address] [address] [facility] [id number] [address] [place] [phone] Sep, [place] [address] [address] [place] [id number] [address] [place] [address] Sep, Dysuria R30.0 and Yeast infe ction B37.9 [place] [address] [address] [place] [id number] [address] [place] [phone] Aug, [facility] [address] [address] 09 Aug, 2016 Other chest pain R07.89 ; Ch est pain, musculoskeletal R07.89 and 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 [address] May, Neuropathy G62.9 ; Peptic ul cer disease K27.9 and ARTURO (secretory otitis media), right H65.91 [facility] [address] [id number] [place] [id number] May, [address] [address] May, Epigastric pain R10.13 ; Naz ropathy G62.9 and Peptic ulcer disease K27.9 [facility] [address] [id number] Jan, Dental examination Z01.[address] [address] Dec, Encounter for routine gyneco logical examination with Papanicolaou smear of cervix Z01.[address] [address] Dec, Encounter to establish care Z76.89 ; Tension headache G44.209 ; Other fatigue R53.83 and Vertigo R42 [address] [address] Nov, Encounter for Depo-Provera c ontraception Z30.42 [facility] [address] [place] [id number] [place] [id number] Oct, Dental examination Z01.20 [facility] [address] [place] [address] Aug, Encounter for Depo-Provera c ontraception Z30.42 [facility] [address] [address] July, Acute low back pain without sciatica, unspecified back pain laterality M54.5 ; Rectal bleeding K62.5 and Dysuria R30.[address] [address] 03 May, 2015 Routine follow-up Z39.2 ; Encounter for counseling regarding contraception Z30.9 ; Surveillance of contraceptive injection Z30.42 ; Patient is a currently breast-feeding mother Z39.1 ; Chills (without fever) R68.83 and History of section Z98.[address] [address] Apr, Encounter for supervision of normal first , third trimester Z34.03 and 37 weeks gestation of Z3A.[address] [address] Apr, screening for stre ptococcus B Z36 ; 36 weeks gestation of Z3A.36 and Encounter for supervision of normal first , third trimester Z34.[address] [address] Mar, Encounter for supervision of normal first , third trimester Z34.03 and 34 weeks gestation of Z3A.[address] [address] Mar, Encounter for supervision of normal first , third trimester Z34.03 and 32 weeks gestation of Z3A.[address] [address] Jan, Encounter for supervision of normal first , third trimester Z34.03 ; 29 weeks gestation of Z3A.29 and Encounter for immunization Z23 [address] [address] Dec, Encounter for supervision of normal first , second trimester Z34.02 ; Encounter for immunization Z23 and with 25 completed weeks gestation Z3A.[address] [place] [address] Dec, [facility] [address] [id number] [address] [place] [address] Dec, Encounter for supervision of normal first , second trimester Z34.02 ; Supervision of normal first V22.0 and 21 weeks gestation of Z3A.21 [facility] [address] [id number] [address] [place] [phone] Nov, [facility] [address] [id number] [address] [place] [phone] 15 Nov, 2014 Abnormal quad screen 796.5 a nd Short cervix 622.5 [place] [address] [address] [facility] [id number] [address] [place] [phone] 11 Nov, 2014 Supervision of normal first V22.0 [facility] [address] [id number] [address] [place] [address] Nov, Abnormal quad screen 796.5 [facility] [address] [id number] [address] [place] [phone] Nov, , normal first V22. 0 [facility] [address] [id number] [address] [place] [address] Oct, [facility] [address] [facility] [id number] [address] [place] [address] Oct, Diarrhea 787.91 [facility] [address] [facility] [id number] [address] [place] [address] Oct, Diarrhea 787.91 [facility] [address] [facility] [id number] [address] [place] [phone] Oct, Diarrhea 787.91 and Pregnanc y, normal first V22.0 [facility] [address] [id number] [address] [place] [address] Sep, , normal first V22. 0 ; Pap test, as part of routine gynecological examination V76.2 and Screen for STD (sexually transmitted disease) V74.5 [facility] [address] [facility] [id number] [place] [address] Aug, Supervision of normal first V22.0 [facility] [address] [facility] [id number] [place] [address] Aug, test positive V72. 42 IMMUNIZATIONS No Known Immunizations SOCIAL HISTORY Never Assessed REASON FOR VISIT Bloating and pain in the stomach every morning , going to the bathroom 5 times a day x 3 weeks -- michelle whiteside PLAN OF CARE Activity Details Follow Up 2-4wk with PCP Reason: VITAL SIGNS Height 63 in 2017-11-04 Weight 131.0 lbs 2017-11-04 Temperature 98.0 degrees Fahrenheit 2017-11-04 Heart Rate 78 bpm 2017-11-04 Respiratory Rate 20 2017-11-04 BMI 23.20 kg/m2 2017-11-04 Blood pressure systolic 120 mmHg 2017-11-04 Blood pressure diastolic 78 mmHg 2017-11-04 MEDICATIONS Medication Instructions Dosage Frequency Start Date End Date Duration S tatus Esomeprazole Magnesium 40 mg Orally Once a day on an empty stomach 1 capsule Oct, 30 day(s) Active Polyethylene Glycol 3350 17 gm/dose Orally every other day until BM are regular, then prn 1 capful Oct, Nov, 14 days Active Ibuprofen 800 MG Orally Three times a day as needed 1 tab let with food or milk as needed 30 Not-Taking RESULTS No Results PROCEDURES No Known procedures [...]
--- OUTSIDE RECORDS SUMMARY | 2019-10-09 13:29 | XMS REPORT ---
Author Author Cherie RODAS Organization [employer] Address Unknown Phone Unavailable Care Team Providers Care Sugar Refiner Name Role Phone ANGEL RODAS Unavailable Allergies No Known Allergies Problems Problem Type Condition Code Onset Dates Condition Statu s Problem Encounter for supervision of normal firs t , second trimester Z34.02 Active Assessment Encounter for supervision of normal first , second trimester Z34.02 Active Problem Abnormal quad screen O28.0 Active Assessment Encounter for immunization Z23 A ctive Assessment with 25 completed weeks gestation Z3A.25 Active Medications No Known Medications Procedures Procedure Coding System Code Date COMPLETE CBC W/AUTO DIFF WBC CPT-4 59198 Jan 28, 2015 GLUCOSE TEST CPT-4 35495 Jan 28, 2015 URINE-NO MICRO CPT-4 38796 Jan 28, 2015 FLUARIX QUAD (3 & UP)-GSK-2014 CPT-[address] 2014 Office Visit, Est Pt., Level 3 CPT-[address] 2014 VENIPUNCT, ROUTINE* CPT-4 64155 Jan 28, 2015 SINGLE IMMUNIZATION ADMIN CPT-4 71552 Dec Vital Signs Date/Time: Jan 28, 2015 Temperature 98.0 F Weight 148.6 lbs Height 5'3" in Blood Pressure Diastolic 70 mmHg Blood Pressure Systolic 120 mmHg Cardiac Monitoring Heart Rate 70 bpm Results Name Result Date Reference Range Unit Abnormali ty Flag UA OB DIP (IN HOUSE) GLUCOSE ALEXIS 1 HOUR Immunizations Vaccine Administration Date FLUARIX QUAD (3 & UP)-GSK-2014Jan 28, 2015 Summary Purpose [employer] Submission
--- OUTSIDE RECORDS SUMMARY | 2019-10-09 13:29 | XMS REPORT ---
Author Author Cherie ELLIS Organization [facility] Address [address] [place] [address] Care Team Providers Care Lasting Room Machine Operator Name Role Phone VANDANA ELLIS Unavailable PROBLEMS Type Condition ICD9-CM Code FPM80-SZ Code Onset Dates Condition S tatus SNOMED Code Problem Patient is a currently breast-feeding mother Z39.1 Active 308587688 Problem Tension headache G44.209 Active 398 911987 Problem History of section Z98.89 Ac tive 359972107 Problem Abnormal quad screen O28.0 Active 996817314 Problem Surveillance of contraceptive injection Z30.42 Active 736128811 Problem Other chronic pain G89.29 Active 8 3452716 Problem Lumbago with sciatica, right side M54.41 Active 563547382 Problem Neuropathy G62.9 Active 785353084 Problem Peptic ulcer disease K27.9 Active 02766460 Problem Lumbago with sciatica, left side M54.42 Active 631652514 Problem Epigastric pain R10.13 Active 7992 2009 ALLERGIES No Information SOCIAL HISTORY Never Assessed PLAN OF CARE VITAL SIGNS MEDICATIONS Unknown Medications RESULTS No Results PROCEDURES No Known procedures IMMUNIZATIONS No Known Immunizations MEDICAL (GENERAL) HISTORY Type Description Date Surgical History section 04/2015 Hospitalization History Childbirth/surgery
--- OUTSIDE RECORDS SUMMARY | 2019-10-09 13:29 | XMS REPORT ---
Author Author Cherie ALEXANDER Organization [facility] Address [address] [place] [address] Care Team Providers Care Wet Pan Operator Name Role Phone RAO ALEXANDER Unavailable PROBLEMS Type Condition ICD9-CM Code VBF00-RW Code Onset Dates Condition S tatus SNOMED Code Problem Surveillance of contraceptive injection Z30.42 Active 026383140 Problem Tension headache G44.209 Active 398 920623 Problem History of section Z98.89 Ac tive 039649539 Problem Abnormal quad screen O28.0 Active 923948313 Problem Other chronic pain G89.29 Active 8 7842134 Problem Lumbago with sciatica, unspecified side M54.40 Active 430912036 Problem Neuropathy G62.9 Active 802530957 Problem Peptic ulcer disease K27.9 Active 29376722 Problem Lumbago with sciatica, right side M54.41 Active 799297961 Problem Lumbago with sciatica, left side M54.42 Active 863485824 ALLERGIES Substance Reaction Event Type Date Status Penicillin V Potassium rash Drug Allergy Apr, Activ e ENCOUNTERS Encounter Location Date Diagnosis [place] [address] [address] [place] [id number] [address] [place] [address] July, Well woman exam Z01.419 and Muscle strain of chest wall, initial encounter S29.011A [place] [address] [address] [facility] [id number] [address] [place] [address] July, Neuralgia M79.2 [place] [id number] [address] [place] [address] July, Lumbago with sciatica, unspe cified side M54.40 and Other chronic pain G89.29 [place] [address] [address] [facility] [id number] [address] [place] [address] Apr, Cough productive of purulent sputum R05 and Hemoptysis R04.2 [place] [address] [address] [facility] [id number] [address] [place] [address] Dec, Encounter for screening for infections with a predominantly sexual mode of transmission Z11.3 [place] [address] [facility] [id number] [address] [place] [address] Dec, [place] [address] [place] [id number] [place] [address] Nov, Vaginal yeast infection B37. 3 ; Encounter for screening for infections with a predominantly sexual mode of transmission Z11.3 and Routine gynecological examination Z01.419 [place] [address] [place] [id number] [place] [address] Oct, Lumbago with sciatica, right side M54.41 ; Dysuria R30.0 ; Acute cystitis without hematuria N30.00 ; Lumbago with sciatica, left side M54.42 ; Dyshydrosis L30.1 and Vaginal yeast infection B37.3 [place] [address] [place] [id number] [address] [place] [address] Oct, [place] [address] [place] [id number] [place] [address] Sep, [place] [address] [place] [id number] [place] [address] Sep, Dysuria R30.0 and Yeast infe ction B37.9 [place] [address] [place] [id number] [address] [place] [address] Aug, [facility] [address] [facility] [id number] [address] [place] [address] Aug, Other chest pain R07.89 ; Ch est pain, musculoskeletal R07.89 and 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 [place] [address] [place] [id number] [address] [place] [address] May, Neuropathy G62.9 ; Peptic ul cer disease K27.9 and ARTURO (secretory otitis media), right H65.91 [facility] [address] [id number] Armin V[place]AZ[place] S [id number] May, [facility] [address] [place] [address] May, Epigastric pain R10.13 ; Naz ropathy G62.9 and Peptic ulcer disease K27.9 [facility] [address] [id number] Jan, Dental examination Z01.20 [facility] [address] [address] Dec, Encounter for routine gyneco logical examination with Papanicolaou smear of cervix Z01.419 [place] [address] [address] Dec, Encounter to establish care Z76.89 ; Tension headache G44.209 ; Other fatigue R53.83 and Vertigo R42 [facility] [address] [place] [id number] [address] [place] [address] Nov, Encounter for Depo-Provera c ontraception Z30.42 [facility] [address] [place] [id number] Oct, Dental examination Z01.20 [facility] [address] [address] Aug, Encounter for Depo-Provera c ontraception Z30.42 [facility] [address] [address] July, Acute low back pain without sciatica, unspecified back pain laterality M54.5 ; Rectal bleeding K62.5 and Dysuria R30.0 [facility] [address] [place] [id number] [address] [place] [address] May, Routine follow-up Z39.2 ; Encounter for counseling regarding contraception Z30.9 ; Surveillance of contraceptive injection Z30.42 ; Patient is a currently breast-feeding mother Z39.1 ; Chills (without fever) R68.83 and History of section Z98.[address] [address] Apr, Encounter for supervision of normal first , third trimester Z34.03 and 37 weeks gestation of Z3A.[address] [address] Apr, screening for stre ptococcus B Z36 ; 36 weeks gestation of Z3A.36 and Encounter for supervision of normal first , third trimester Z34.[address] [address] Mar, Encounter for supervision of normal first , third trimester Z34.03 and 34 weeks gestation of Z3A.[address] [address] Mar, Encounter for supervision of normal first , third trimester Z34.03 and 32 weeks gestation of Z3A.[address] [address] Jan, Encounter for supervision of normal first , third trimester Z34.03 ; 29 weeks gestation of Z3A.29 and Encounter for immunization Z23 [address] [address] Dec, Encounter for supervision of normal first , second trimester Z34.02 ; Encounter for immunization Z23 and with 25 completed weeks gestation Z3A.[address] [address] Dec, [address] [address] Dec, Encounter for supervision of normal first , second trimester Z34.02 ; Supervision of normal first V22.0 and 21 weeks gestation of Z3A.[address] [id number] [address] [place] [address] 28 Nov, 2014 [facility] [address] [id number] [address] [place] [address] 15 Nov, 2014 Abnormal quad screen 796.5 a nd Short cervix 622.5 [facility] [address] [id number] [address] [place] [address] 11 Nov, 2014 Supervision of normal first V22.0 [facility] [address] [id number] [address] [place] [address] 09 Nov, 2014 Abnormal quad screen 796.5 [place] [address] [id number] [address] [place] [address] 04 Nov, 2014 , normal first V22. 0 [place] [address] [facility] [id number] [address] [place] [address] Oct, [place] [address] [id number] [address] [place] [address] Oct, Diarrhea 787.91 [place] [address] [id number] [address] [place] [address] Oct, Diarrhea 787.91 [facility] [address] [facility] [id number] [address] [place] [address] Oct, Diarrhea 787.91 and Pregnanc y, normal first V22.0 [place] [address] [id number] [address] [place] [address] Sep, , normal first V22. 0 ; Pap test, as part of routine gynecological examination V76.2 and Screen for STD (sexually transmitted disease) V74.5 [facility] [address] [id number] [address] [place] [address] Aug, Supervision of normal first V22.0 [facility] [address] [facility] [id number] [address] [place] [address] Aug, test positive V72. 42 IMMUNIZATIONS No Known Immunizations SOCIAL HISTORY Never Assessed REASON FOR VISIT cough, body ache, fever, chills, running nose x almost 2 weeks -- alexbernymichelle keane, patient states her 2 years old daughter was diagnosed with positive flu 2 days a go PLAN OF CARE Activity Details Follow Up prn Reason: VITAL SIGNS Height 63 in 2017-04-10 Weight 147.0 lbs 2017-04-10 Temperature 100.2 degrees Fahrenheit 2017-04-10 Heart Rate 78 bpm 2017-04-10 Respiratory Rate 18 2017-04-10 BMI 26.04 kg/m2 2017-04-10 Blood pressure systolic 120 mmHg 2017-04-10 Blood pressure diastolic 76 mmHg 2017-04-10 MEDICATIONS Medication Instructions Dosage Frequency Start Date End Date Duration S tatus Promethazine-Codeine 6.25-10 MG/5ML Orally every 6 hrs 5 ml as need ed 6h Apr, Apr, 07 days Active Promethazine-Codeine 6.25-10 MG/5ML Orally every 6 hrs as needed for cough 5 ml Apr, Apr, 07 days Active RESULTS Name Result Date Reference Range INFLUENZA A & B (IN HOUSE) 2017-04-10 INFLUENZA A neg INFLUENZA B neg Control + Lot # [id number] Exp date 05/2019 Xray : Chest 2 View (IN HOUSE) 2017-04-10 PROCEDURES Procedure Date Ordered Result Body Site X-RAY EXAM CHEST 2 VIEWS Apr 10, 2017 INFLUENZA ASSAY W/OPTIC Apr 10, 2017 INSTRUCTIONS MEDICATIONS ADMINISTERED No Known Medications MEDICAL (GENERAL) HISTORY Type Description Date Medical History Abnormal quad screen Medical History History of section Medical History Peptic ulcer disease Medical History Lumbago with sciatica, right side Medical History Lumbago with sciatica, left side Medical History Other chronic pain Medical History Neuropathy Surgical History section 04/2015 Hospitalization History Childbirth/surgery
--- OUTSIDE RECORDS SUMMARY | 2019-10-09 13:29 | XMS REPORT ---
Author Author Cherie RODAS [facility] [employer] Address Unknown Phone Unavailable Care Team Providers Care Leverman Name Role Phone ANGEL RODAS Unavailable Allergies No Known Allergies Problems Problem Type Condition ICD-9 Code Onset Dates Condition Statu s Problem , normal first V22.0 Acti ve Assessment Abnormal quad screen 796.5 Active Problem Abnormal quad screen 796.5 Active Medications No Known Medications Results No Known Results Summary Purpose [employer] Submission
--- OUTSIDE RECORDS SUMMARY | 2019-10-09 13:29 | XMS REPORT ---
Author Author Cherie RODAS [facility] eClinicalWorks Address Unknown Phone Unavailable Care Team Providers Care Rug Measurer Name Role Phone ANGEL RODAS CP Unavailable Allergies No Known Allergies Problems Problem Type Condition Code Onset Dates Condition Statu s Problem Abnormal quad screen O28.0 Active Assessment Encounter for supervision of normal firs t , third trimester Z34.03 Active Problem Encounter for supervision of normal firs t , third trimester Z34.03 Active Assessment 29 weeks gestation of Z3A.29 Active Assessment Encounter for immunization Z23 A ctive Medications No Known Medications Procedures Procedure Coding System Code Date Office Visit, Est Pt., Level 2 CPT-4 24189 N 2014 TDAP (BOOSTRIX) CPT-4 60428 Feb 22, 2015 URINE-NO MICRO CPT-4 10280 Feb 22, 2015 SINGLE IMMUNIZATION ADMIN CPT-4 93184 Jan Vital Signs Date/Time: Feb 22, 2015 Temperature 97.8 F Weight 150.0 lbs Height 5'3" in BMI 26.57 Index Blood Pressure Diastolic 70 mmHg Blood Pressure Systolic 116 mmHg Results Name Result Date Reference Range Unit Abnormali ty Flag UA OB DIP (IN HOUSE) ----Glucose negative 20150222 ----Protein negative 20150222 Immunizations Vaccine Administration Date TDAP (BOOSTRIX) Feb 22, 2015 Summary Purpose eClinicalWorks Submission
--- OUTSIDE RECORDS SUMMARY | 2019-10-09 13:29 | XMS REPORT ---
Author Author Cherie RODAS Organization eClinicalWorks Address Unknown Phone Unavailable Care Team Providers Care Shirt Maker Name Role Phone ANGEL RODAS CP Unavailable Allergies No Known Allergies Problems Problem Type Condition ICD-9 Code Onset Dates Condition Statu s Problem , normal first V22.0 Acti ve Assessment Supervision of normal first V22.0 Active Problem Abnormal quad screen 796.5 Active Medications No Known Medications Procedures Procedure Coding System Code Date VENIPUNCT, ROUTINE* CPT-4 51694 Dec 10 5 ALPHA-FETOPROTEIN, SERUM CPT-4 97253 Nov Results Name Result Date Reference Range Unit Abnormali ty Flag ROUTINE VENIPUNCTURE Summary Purpose eClinicalWorks Submission
--- OUTSIDE RECORDS SUMMARY | 2019-10-09 13:29 | XMS REPORT ---
Author Author Cherie ALEXANDER Organization [facility] Address [address] [place] [address] Care Team Providers Care Law Clerk Name Role Phone RAO ALEXANDER Unavailable PROBLEMS Type Condition ICD9-CM Code [id number] Code Onset Dates Condition S tatus SNOMED Code Problem Surveillance of contraceptive injection Z30.42 Active 409847423 Problem Tension headache G44.209 Active 398 145778 Problem History of section Z98.89 Ac tive 526786675 Problem Abnormal quad screen O28.0 Active 996700639 Problem Other chronic pain G89.29 Active 8 0313033 Problem Lumbago with sciatica, unspecified side M54.40 Active 229692007 Problem Neuropathy G62.9 Active 747044223 Problem Peptic ulcer disease K27.9 Active 17249086 Problem Lumbago with sciatica, right side M54.41 Active 079773878 Problem Lumbago with sciatica, left side M54.42 Active 548791534 ALLERGIES Substance Reaction Event Type Date Status Penicillin V Potassium rash Drug Allergy Nov, Activ e ENCOUNTERS Encounter Location Date Diagnosis [place] [id number] [facility] [id number] [address] [place] [phone] July, [place] [address] [place] [id number] [address] [place] [id number] 04 Jul, 2017 Lumbago with sciatica, unspe cified side M54.40 and Other chronic pain G89.29 [facility] [address] [facility] [id number] [address] [place] [address] 10 Apr, 2017 Cough productive of purulent sputum R05 and Hemoptysis R04.2 [place] [address] [facility] [id number] [address] [place] [address] 12 Dec, 2016 Encounter for screening for infections with a predominantly sexual mode of transmission Z11.3 [place] [address] [facility] [id number] [address] [place] [address] Dec, [place] [address] [place] [id number] [place] [phone] Nov, Vaginal yeast infection B37. 3 ; Encounter for screening for infections with a predominantly sexual mode of transmission Z11.3 and Routine gynecological examination Z01.419 [place] [address] [address] [place] [id number] [address] [place] [address] Oct, Lumbago with sciatica, right side M54.41 ; Dysuria R30.0 ; Acute cystitis without hematuria N30.00 ; Lumbago with sciatica, left side M54.42 ; Dyshydrosis L30.1 and Vaginal yeast infection B37.3 [place] [address] [place] [id number] [address] [place] [address] Oct, [place] [address] [place] [id number] [address] [place] [address] Sep, [place] [address] [phone] Sep, Dysuria R30.0 and Yeast infe ction B37.9 [place] [address] [place] [id number] [address] [place] [address] Aug, [facility] [address] [place] [id number] [address] [place] [address] Aug, Other chest pain R07.89 ; Ch est pain, musculoskeletal R07.89 and 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 [place] [address] [facility] [id number] [address] [place] [address] May, Neuropathy G62.9 ; Peptic ul cer disease K27.9 and ARTURO (secretory otitis media), right H65.91 [facility] [address] [id number] Armin VELAZCO S [id number] May, [place] [address] [address] 03 May, 2016 Epigastric pain R10.13 ; Naz ropathy G62.9 and Peptic ulcer disease K27.9 [facility] [address] [place] [id number] [place] [id number] Jan, Dental examination Z01.20 [facility] [address] [address] 19 Dec, 2015 Encounter for routine gyneco logical examination with Papanicolaou smear of cervix Z01.419 [place] [address] [address] 13 Dec, 2015 Encounter to establish care Z76.89 ; Tension headache G44.209 ; Other fatigue R53.83 and Vertigo R42 [address] [address] Nov, Encounter for Depo-Provera c ontraception Z30.42 [facility] [id number] [place] [id number] Oct, Dental examination Z01.20 [facility] [address] [phone] 03 Aug, 2015 Encounter for Depo-Provera c ontraception Z30.42 [facility] [address] [phone] July, Acute low back pain without sciatica, unspecified back pain laterality M54.5 ; Rectal bleeding K62.5 and Dysuria R30.0 [place] [address] [address] 03 May, 2015 Routine follow-up Z39.2 ; Encounter for counseling regarding contraception Z30.9 ; Surveillance of contraceptive injection Z30.42 ; Patient is a currently breast-feeding mother Z39.1 ; Chills (without fever) R68.83 and History of section Z98.89 [place] [address] [address] Apr, Encounter for supervision of normal first , third trimester Z34.03 and 37 weeks gestation of Z3A.37 [place] [id number] [address] [place] [address] Apr, screening for stre ptococcus B Z36 ; 36 weeks gestation of Z3A.36 and Encounter for supervision of normal first , third trimester Z34.03 [place] [id number] [address] [place] [address] Mar, Encounter for supervision of normal first , third trimester Z34.03 and 34 weeks gestation of Z3A.[address] [address] Mar, Encounter for supervision of normal first , third trimester Z34.03 and 32 weeks gestation of Z3A.[address] [address] Jan, Encounter for supervision of normal first , third trimester Z34.03 ; 29 weeks gestation of Z3A.29 and Encounter for immunization Z23 [place] [id number] [address] [place] [address] Dec, Encounter for supervision of normal first , second trimester Z34.02 ; Encounter for immunization Z23 and with 25 completed weeks gestation Z3A.25 [place] [id number] [address] [place] [address] Dec, [place] [id number] [place] [address] Dec, Encounter for supervision of normal first , second trimester Z34.02 ; Supervision of normal first V22.0 and 21 weeks gestation of Z3A.21 [place] [id number] [address] [place] [address] Nov, [place] [id number] [address] [place] [address] Nov, Abnormal quad screen 796.5 a nd Short cervix 622.5 [place] [address] [id number] [address] [place] [address] Nov, Supervision of normal first V22.0 [place] [address] [id number] [address] [place] [address] Nov, Abnormal quad screen 796.5 [place] [address] [facility] [id number] [address] [place] [address] Nov, , normal first V22. 0 [place] [address] [id number] [address] [place] [address] Oct, [place] [address] [facility] [id number] [address] [place] [address] Oct, Diarrhea 787.91 [place] [address] [facility] [id number] [address] [place] [address] Oct, Diarrhea 787.91 [place] [address] [facility] [id number] [address] [place] [address] Oct, Diarrhea 787.91 and Pregnanc y, normal first V22.0 [place] [address] [facility] [id number] [address] [place] [address] Sep, , normal first V22. 0 ; Pap test, as part of routine gynecological examination V76.2 and Screen for STD (sexually transmitted disease) V74.5 [place] [address] [id number] [address] [place] [address] Aug, Supervision of normal first V22.0 [place] [address] [facility] [id number] [address] [place] [address] Aug, test positive V72. 42 IMMUNIZATIONS No Known Immunizations SOCIAL HISTORY Never Assessed REASON FOR VISIT Back pain f/u---DBennettRN, c/o vaginal itching, white discharge and odor x 1 we ek PLAN OF CARE Activity Details Follow Up prn pending labs with pcp Re ason: VITAL SIGNS Height 63 in 2016-12-26 Weight 140 lbs 2016-12-26 Temperature 98.3 degrees Fahrenheit 2016-12-26 Heart Rate 90 bpm 2016-12-26 Respiratory Rate 20 2016-12-26 BMI 24.80 kg/m2 2016-12-26 Blood pressure systolic 124 mmHg 2016-12-26 Blood pressure diastolic 72 mmHg 2016-12-26 MEDICATIONS Medication Instructions Dosage Frequency Start Date End Date Duration S tatus Meloxicam 15 MG Orally Once a day 1 tablet 24h 30 da y(s) Active Diflucan 150 MG Orally Once a day 1 tablet 24h 27 Nov, 2016 1 dose Active RESULTS Name Result Date Reference Range TRICHOMONAS (IN HOUSE) 2016-12-26 TRICHOMONAS negative Control + Lot # [id number] Exp date 01/2018 BACTERIAL VAGINOSIS (IN HOUSE) 2016-12-26 RESULTS negative Control + Lot # [id number] Exp date 08/2017 CULTURE, GENITAL 2016-12-26 Genital Culture, Routine Final report Result 1 Yeast isolated. GC/CHLAM PROBE (STATE) 2016-12-26 CHLAMYDIA GC PROCEDURES Procedure Date Ordered Result Body Site No Charge Dec 26, 2016 Bacterial Vaginosis In House Dec 26, 2016 TRICHOMONAS ASSAY W/OPTIC Dec 26, 2016 CULTURE, BACTERIA, OTHER Dec 26, 2016 INSTRUCTIONS MEDICATIONS ADMINISTERED No Known Medications MEDICAL (GENERAL) HISTORY Type Description Date Medical History Abnormal quad screen Medical History History of section Medical History Peptic ulcer disease Medical History Lumbago with sciatica, right side Medical History Lumbago with sciatica, left side Medical History Other chronic pain Medical History Neuropathy Surgical History section 04/2015 Hospitalization History Childbirth/surgery
--- OUTSIDE RECORDS SUMMARY | 2019-10-09 13:29 | XMS REPORT ---
Author Cherie Jurado Organization eClinicalWorks Address Unknown Phone Unavailable Care Team Providers Care Ultimate Hoops Trainer Name Role Phone RAO ALEXANDER CP Unavailable Allergies No Known Allergies Problems Problem Type Condition ICD-9 Code Onset Dates Condition Statu s Problem , normal first V22.0 Acti ve Medications No Known Medications Results No Known Results Summary Purpose eClinicalWorks Submission
--- OUTSIDE RECORDS SUMMARY | 2019-10-09 13:29 | XMS REPORT ---
Author Author Cherie RODAS [facility] eClinicalWorks Address Unknown Phone Unavailable Care Team Providers Care Physician Primary Care Sports Medicine Name Role Phone ANGEL RODAS Unavailable Allergies No Known Allergies Problems Problem Type Condition Code Onset Dates Condition Statu s Problem Abnormal quad screen O28.0 Active Assessment Encounter for supervision of normal firs t , third trimester Z34.03 Active Problem Encounter for supervision of normal firs t , third trimester Z34.03 Active Assessment 34 weeks gestation of Z3A.34 Active Medications No Known Medications Procedures Procedure Coding System Code Date Office Visit, Est Pt., Level 2 CPT-4 79770 D 2014 URINE-NO MICRO CPT-4 19374 Mar 29, 2015 Vital Signs Date/Time: Mar 29, 2015 Temperature 97.6 F Weight 160.0 lbs Height 5'3" in Blood Pressure Diastolic 68 mmHg Blood Pressure Systolic 112 mmHg Cardiac Monitoring Heart Rate 78 bpm Results No Known Results Summary Purpose eClinicalWorks Submission
--- OUTSIDE RECORDS SUMMARY | 2019-10-09 13:29 | XMS REPORT ---
Author Author Cherie ELLIS Organization eClinicalWorks Address Unknown Phone Unavailable Care Team Providers Care Appliance Counselor Name Role Phone VANDANA ELLIS CP Unavailable Allergies, Adverse Reactions, Alerts Substance Reaction Event Type Penicillin V Potassium rash Drug Allergy Problems Problem Type Condition Code Onset Dates Condition Statu s Problem Patient is a currently breast-feeding mother Z39.1 Active Problem History of section Z98.89 Active Problem Surveillance of contraceptive injection Z30.42 Active Problem Abnormal quad screen O28.0 Active Assessment Encounter for routine gyneco logical examination with Papanicolaou smear of cervix Z01.419 Active Medications Medication Code System Code Instructions Start Date End Date Status Dosage Depo-Provera [facility] [address]-64 150 MG/ML Intramuscular Alisha ry 3 months June 02, 2015 1 ml Procedures Procedure Coding System Code Date SPECIMEN HANDLING CPT-4 90172 Jan 18, 2016 No Charge CPT-4 16216 Jan 18, 2016 Office Visit, Est Pt., Level 4 CPT-[address] 2015 [place] VAG, DNA, DIR PROBE CPT-4 04063 Jan 18, 2016 TRICHOMONAS ASSAY W/OPTIC CPT-4 27686 Dec CULTURE, BACTERIA, OTHER CPT-4 02408 Jan 18, 2016 Vital Signs Date/Time: Jan 18, 2016 Cardiac Monitoring Heart Rate 84 bpm Weight 157.8 lbs Height 5'3" in BMI 27.95 Index Blood Pressure Diastolic 67 mmHg Blood Pressure Systolic 118 mmHg Results Name Result Date Reference Range Unit Abnormali ty Flag BACTERIAL VAGINOSIS (IN HOUSE) ----RESULTS negative 20160118 ----Control + 20160118 ----Lot # [id number] 20160118 ----Exp date 20160118 TRICHOMONAS (IN HOUSE) ----Exp date 20160118 ----Control + 20160118 ----Lot # [id number] 20160118 ----TRICHOMONAS negative 20160118 Summary Purpose eClinicalWorks Submission
--- OUTSIDE RECORDS SUMMARY | 2019-10-09 13:29 | XMS REPORT ---
Author Author Cherie ALEXANDER Organization [facility] Address [address] [place] [address] Care Team Providers Care Giving Officer Name Role Phone RAO ALEXANDER Unavailable PROBLEMS Type Condition ICD9-CM Code [id number] Code Onset Dates Condition S tatus SNOMED Code Problem Surveillance of contraceptive injection Z30.42 Active 788677482 Problem Abnormal quad screen O28.0 Active 852858474 Problem Lumbago with sciatica, right side M54.41 Active 923749838 Problem Lumbago with sciatica, left side M54.42 Active 814205397 Problem Tension headache G44.209 Active 398 882212 Problem History of section Z98.89 Ac tive 193333025 Problem Neuropathy G62.9 Active 083786547 Problem Peptic ulcer disease K27.9 Active 18225233 ALLERGIES Substance Reaction Event Type Date Status Penicillin V Potassium rash Drug Allergy Oct, Activ e ENCOUNTERS Encounter Location Date Diagnosis [place] [address] [address] [facility] [id number] [address] [place] [address] Apr, Cough productive of purulent sputum R05 and Hemoptysis R04.2 [place] [address] [address] [facility] [id number] [address] [place] [address] Dec, Encounter for screening for infections with a predominantly sexual mode of transmission Z11.3 [place] [address] [address] [facility] [id number] [address] [place] [address] Dec, [place] [address] [address] [facility] [id number] [address] [place] [address] Nov, Vaginal yeast infection B37. 3 ; Encounter for screening for infections with a predominantly sexual mode of transmission Z11.3 and Routine gynecological examination Z01.419 [place] [address] [address] [facility] [id number] [address] [place] [address] Oct, Lumbago with sciatica, right side M54.41 ; Dysuria R30.0 ; Acute cystitis without hematuria N30.00 ; Lumbago with sciatica, left side M54.42 ; Dyshydrosis L30.1 and Vaginal yeast infection B37.3 [facility] [address] [place] [id number] [address] [place] [address] Oct, [place] [address] [address] Sep, [facility] [address] [address] Sep, Dysuria R30.0 and Yeast infe ction B37.9 [place] [address] [address] Aug, [facility] [address] [address] Aug, Other chest pain R07.89 ; Ch est pain, musculoskeletal R07.89 and 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 [place] [address] [address] May, Neuropathy G62.9 ; Peptic ul cer disease K27.9 and ARTURO (secretory otitis media), right H65.91 [facility] [id number] [place] [id number] May, [place] [address] [address] [place] [id number] [address] [place] [address] May, Epigastric pain R10.13 ; Naz ropathy G62.9 and Peptic ulcer disease K27.9 [facility] [address] [id number] [address] [place] [id number] Jan, Dental examination Z01.20 [place] [address] [address] [place] [id number] [address] [place] [address] Dec, Encounter for routine gyneco logical examination with Papanicolaou smear of cervix Z01.[address] [place] [address] 13 Dec, 2015 Encounter to establish care Z76.89 ; Tension headache G44.209 ; Other fatigue R53.83 and Vertigo R42 [place] [id number] [place] [address] 07 Dec, 2015 Encounter for Depo-Provera c ontraception Z30.42 [facility] [address] [place] [id number] [address] [place] [id number] [phone] Oct, 2015 Dental examination Z01.20 [facility] [address] [place] [address] 03 Aug, 2015 Encounter for Depo-Provera c ontraception Z30.42 [facility] [address] [place] [address] July, Acute low back pain without sciatica, unspecified back pain laterality M54.5 ; Rectal bleeding K62.5 and Dysuria R30.[address] [address] 03 May, 2015 Routine follow-up Z39.2 ; Encounter for counseling regarding contraception Z30.9 ; Surveillance of contraceptive injection Z30.42 ; Patient is a currently breast-feeding mother Z39.1 ; Chills (without fever) R68.83 and History of section Z98.89 [place] [id number] [address] [place] [address] Apr, Encounter for supervision of normal first , third trimester Z34.03 and 37 weeks gestation of Z3A.[address] [address] 12 Apr, 2015 screening for stre ptococcus B Z36 ; 36 weeks gestation of Z3A.36 and Encounter for supervision of normal first , third trimester Z34.[address] [address] Mar, Encounter for supervision of normal first , third trimester Z34.03 and 34 weeks gestation of Z3A.34 [place] [address] [address] [facility] [id number] [address] [place] [address] Mar, Encounter for supervision of normal first , third trimester Z34.03 and 32 weeks gestation of Z3A.32 [place] [address] [address] [facility] [id number] [address] [place] [address] Jan, Encounter for supervision of normal first , third trimester Z34.03 ; 29 weeks gestation of Z3A.29 and Encounter for immunization Z23 [place] [address] [address] [facility] [id number] [address] [place] [address] Dec, Encounter for supervision of normal first , second trimester Z34.02 ; Encounter for immunization Z23 and with 25 completed weeks gestation Z3A.25 [place] [address] [address] [facility] [id number] [address] [place] [address] Dec, [place] [address] [address] [facility] [id number] [address] [place] [address] Dec, Encounter for supervision of normal first , second trimester Z34.02 ; Supervision of normal first V22.0 and 21 weeks gestation of Z3A.21 [place] [address] [address] [facility] [id number] [address] [place] [address] Nov, [place] [address] [address] [facility] [id number] [address] [place] [address] Nov, Abnormal quad screen 796.5 a nd Short cervix 622.5 [place] [address] [id number] [address] [place] [address] Nov, Supervision of normal first V22.0 [place] [address] [address] [facility] [id number] [address] [place] [address] Nov, Abnormal quad screen 796.5 [place] [address] [address] [facility] [id number] [address] [place] [phone] Nov, , normal first V22. 0 [place] [address] [address] [facility] [id number] [address] [place] [address] Oct, [place] [address] [address] [facility] [id number] [address] [place] [address] Oct, Diarrhea 787.91 [place] [id number] [address] [place] [address] Oct, Diarrhea 787.[address] [id number] [address] [place] [address] Oct, Diarrhea 787.91 and Pregnanc y, normal first V22.0 [place] [id number] [address] [place] [address] Sep, , normal first V22. 0 ; Pap test, as part of routine gynecological examination V76.2 and Screen for STD (sexually transmitted disease) V74.[address] [id number] [address] [place] [address] Aug, Supervision of normal first V22.0 [place] [id number] [address] [place] [address] Aug, test positive V72. 42 IMMUNIZATIONS No Known Immunizations SOCIAL HISTORY Never Assessed REASON FOR VISIT back pain/skin c/o -- michelle whiteside PLAN OF CARE Activity Details Follow Up 4 Weeks or prn with PCP if c ontinued c/o yeast infection or back pain, Reason: VITAL SIGNS Height 63 in 2016-11-28 Weight 140 lbs 2016-11-28 Temperature 97.0 degrees Fahrenheit 2016-11-28 Heart Rate 80 bpm 2016-11-28 Respiratory Rate 18 2016-11-28 BMI 24.80 kg/m2 2016-11-28 Blood pressure systolic 120 mmHg 2016-11-28 Blood pressure diastolic 70 mmHg 2016-11-28 MEDICATIONS Medication Instructions Dosage Frequency Start Date End Date Duration S tatus Bactrim DS 800-160 MG Orally 2 times a day 1 tablet 12h 30 A ug, 2016Nov, 05 days Active Triamcinolone Acetonide 0.1 % Externally Twice a day 1 appli cation to affected area 12h Oct, Active Diflucan 150 MG 1 tablet Oct, Oct, 1 day (s) Active Meloxicam 15 MG Orally Once a day 1 tablet 24h Oct, Nov, 30 day(s) Active RESULTS Name Result Date Reference Range CULTURE, URINE 2016-11-28 Urine Culture, Routine Final report Result 1 No growth TEST, URINE (IN HOUSE) 2016-11-28 RESULTS negative Lot # [id number] Control + Exp date 05/01/18 UA LONG DIP (IN HOUSE) 2016-11-28 Lot # [id number] Exp date 16/11/30 Clarity Clear Color Yellow Odor None GLU Negative NICHOLAS Negative KET Negative SG 1.020 BLO Negative pH 7.0 Protein Negative URO 0.2 NIT Negative LATISHA 1+ Lot # Exp date Xray : Spine, Lumbar 2-3 views (IN HOUSE) 11-28 PROCEDURES Procedure Date Ordered Result Body Site URINALYSIS, AUTO, W/O SCOPE Nov 28, 2016 URINE CULTURE/COLONY COUNT Nov 28, 2016 URINE TEST Nov 28, 2016 X-RAY EXAM OF LOWER SPINE Nov 28, 2016 INSTRUCTIONS MEDICATIONS ADMINISTERED No Known Medications [...]
--- OUTSIDE RECORDS SUMMARY | 2019-10-09 13:29 | XMS REPORT ---
Author Author Cherie ALEXANDER Organization [facility] Address [address] [place] [address] Care Team Providers Care Assembler Wire Mesh Gate Name Role Phone RAO ALEXANDER Unavailable PROBLEMS Type Condition ICD9-CM Code MGB38-LA Code Onset Dates Condition S tatus SNOMED Code Problem Surveillance of contraceptive injection Z30.42 Active 569259088 Problem Tension headache G44.209 Active 398 015254 Problem History of section Z98.89 Ac tive 079292237 Problem Abnormal quad screen O28.0 Active 635911255 Problem Other chronic pain G89.29 Active 8 7498586 Problem Lumbago with sciatica, unspecified side M54.40 Active 059758242 Problem Neuropathy G62.9 Active 665911825 Problem Peptic ulcer disease K27.9 Active 48776064 Problem Lumbago with sciatica, right side M54.41 Active 097991704 Problem Lumbago with sciatica, left side M54.42 Active 801185058 ALLERGIES No Information ENCOUNTERS Encounter Location Date Diagnosis [place] [address] [address] [place] [id number] [address] [place] [phone] July, [place] [address] [address] [place] [id number] [address] [place] [address] 04 Jul, 2017 Lumbago with sciatica, unspe cified side M54.40 and Other chronic pain G89.29 [place] [address] [address] [place] [id number] [address] [place] [address] 10 Apr, 2017 Cough productive of purulent sputum R05 and Hemoptysis R04.2 [place] [address] [address] [place] [id number] [address] [place] [address] 12 Dec, 2016 Encounter for screening for infections with a predominantly sexual mode of transmission Z11.3 [place] [address] [address] Dec, [place] [address] [address] Nov, Vaginal yeast infection B37. 3 ; Encounter for screening for infections with a predominantly sexual mode of transmission Z11.3 and Routine gynecological examination Z01.419 [place] [address] [address] Oct, Lumbago with sciatica, right side M54.41 ; Dysuria R30.0 ; Acute cystitis without hematuria N30.00 ; Lumbago with sciatica, left side M54.42 ; Dyshydrosis L30.1 and Vaginal yeast infection B37.3 [place] [address] [address] Oct, [place] [address] [address] Sep, [place] [address] [address] Sep, Dysuria R30.0 and Yeast infe ction B37.9 [place] [address] [address] Aug, [facility] [address] [address] Aug, Other chest pain R07.89 ; Ch est pain, musculoskeletal R07.89 and 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 [place] [address] [address] [place] [id number] [address] [place] [address] May, Neuropathy G62.9 ; Peptic ul cer disease K27.9 and ARTURO (secretory otitis media), right H65.91 [facility] [address] [id number] [place] [id number] May, [place] [address] [address] May, Epigastric pain R10.13 ; Naz ropathy G62.9 and Peptic ulcer disease K27.9 [facility] [address] [place] [id number] [place] [id number] Jan, Dental examination Z01.20 [facility] [address] [address] Dec, Encounter for routine gyneco logical examination with Papanicolaou smear of cervix Z01.419 [place] [address] [address] Dec, Encounter to establish care Z76.89 ; Tension headache G44.209 ; Other fatigue R53.83 and Vertigo R42 [place] [address] [address] Nov, Encounter for Depo-Provera c ontraception Z30.42 [facility] [address] [place] [id number] [place] [id number] Oct, Dental examination Z01.20 [facility] [address] [address] 03 Aug, 2015 Encounter for Depo-Provera c ontraception Z30.42 [facility] [address] [address] July, Acute low back pain without sciatica, unspecified back pain laterality M54.5 ; Rectal bleeding K62.5 and Dysuria R30.0 [facility] [address] [place] [id number] [address] [place] [address] 03 May, 2015 Routine follow-up Z39.2 ; Encounter for counseling regarding contraception Z30.9 ; Surveillance of contraceptive injection Z30.42 ; Patient is a currently breast-feeding mother Z39.1 ; Chills (without fever) R68.83 and History of section Z98.89 [place] [id number] [address] [place] [address] Apr, Encounter for supervision of normal first , third trimester Z34.03 and 37 weeks gestation of Z3A.37 [place] [address] [facility] [id number] [address] [place] [address] Apr, screening for stre ptococcus B Z36 ; 36 weeks gestation of Z3A.36 and Encounter for supervision of normal first , third trimester Z34.03 [place] [address] [address] [facility] [id number] [address] [place] [address] Mar, Encounter for supervision of normal first , third trimester Z34.03 and 34 weeks gestation of Z3A.34 [place] [address] [address] [facility] [id number] [address] [place] [address] Mar, Encounter for supervision of normal first , third trimester Z34.03 and 32 weeks gestation of Z3A.32 [place] [address] [place] [id number] [address] [place] [address] Jan, Encounter for supervision of normal first , third trimester Z34.03 ; 29 weeks gestation of Z3A.29 and Encounter for immunization Z23 [place] [address] [address] [facility] [id number] [address] [place] [address] Dec, Encounter for supervision of normal first , second trimester Z34.02 ; Encounter for immunization Z23 and with 25 completed weeks gestation Z3A.25 [place] [address] [address] [facility] [id number] [address] [place] [address] Dec, [place] [address] [place] [id number] [address] [place] [address] Dec, Encounter for supervision of normal first , second trimester Z34.02 ; Supervision of normal first V22.0 and 21 weeks gestation of Z3A.21 [place] [address] [address] [facility] [id number] [address] [place] [address] Nov, [place] [address] [address] [facility] [id number] [address] [place] [address] Nov, Abnormal quad screen 796.5 a nd Short cervix 622.5 [facility] [address] [id number] [address] [place] [address] 11 Nov, 2014 Supervision of normal first V22.0 [place] [address] [address] [facility] [id number] [address] [place] [address] Nov, Abnormal quad screen 796.5 [facility] [address] [facility] [id number] [address] [place] [address] Nov, , normal first V22. 0 [facility] [address] [facility] [id number] [address] [place] [address] Oct, [place] [address] [address] [facility] [id number] [address] [place] [address] Oct, Diarrhea 787.91 [place] [address] [address] [facility] [id number] [address] [place] [address] Oct, Diarrhea 787.91 [place] [address] [address] [place] [id number] [address] [place] [address] Oct, Diarrhea 787.91 and Pregnanc y, normal first V22.0 [place] [address] [address] [facility] [id number] [address] [place] [address] Sep, , normal first V22. 0 ; Pap test, as part of routine gynecological examination V76.2 and Screen for STD (sexually transmitted disease) V74.5 [place] [address] [address] [facility] [id number] [address] [place] [address] Aug, Supervision of normal first V22.0 [place] [address] [address] [facility] [id number] [address] [place] [address] Aug, test positive V72. 42 IMMUNIZATIONS No Known Immunizations SOCIAL HISTORY Never Assessed REASON FOR VISIT Future lab order PLAN OF CARE VITAL SIGNS MEDICATIONS Unknown [...]
--- OUTSIDE RECORDS SUMMARY | 2019-10-09 13:29 | XMS REPORT ---
Author Author Cherie COLEMAN Organization [employer] Address Unknown Phone Unavailable Care Team Providers Care Deli Slicer Name Role Phone ROBBIE COLEMAN CP Unavailable Allergies, Adverse Reactions, Alerts Substance Reaction Event Type Penicillin V Potassium rash Drug Allergy Problems Problem Type Condition Code Onset Dates Condition Statu s Assessment Other fatigue R53.83 Active Assessment Vertigo R42 Active Problem Surveillance of contraceptive injection Z30.42 Active Problem Patient is a currently breast-feeding mother Z39.1 Active Problem Tension headache G44.209 Active Assessment Encounter to establish care Z76.89 Active Assessment Tension headache G44.209 Active Problem History of section Z98.89 Active Problem Abnormal quad screen O28.0 Active Medications Medication Code System Code Instructions Start Date End Date Status Dosage Baclofen [facility] [address]-16 10 mg Orally at bedtime Jan 12, 2016 1 tablet with food or milk Depo-Provera [facility] [address]-36 150 MG/ML Intramuscular Alisha ry 3 months June 02, 2015 1 ml Procedures Procedure Coding System Code Date Office Visit, New Pt., Level 3 CPT-[address] 2015 Vital Signs Date/Time: Jan 12, 2016 Cardiac Monitoring Heart Rate 88 bpm Weight 156 lbs Height 5'3" in BMI 27.63 Index Blood Pressure Diastolic 62 mmHg Blood Pressure Systolic 118 mmHg Results No Known Results Summary Purpose [employer] Submission
--- OUTSIDE RECORDS SUMMARY | 2019-10-09 13:29 | XMS REPORT ---
Author Author Cherie ALEXANDER Organization [employer] Address Unknown Phone Unavailable Care Team Providers Care Manager Testing Name Role Phone RAO ALEXANDER CP Unavailable Allergies No Known Allergies Problems Problem Type Condition ICD-9 Code Onset Dates Condition Statu s Assessment Diarrhea 787.91 Active Problem , normal first V22.0 Acti ve Medications No Known Medications Procedures Procedure Coding System Code Date COMPREHEN METABOLIC PANEL CPT-4 39292 Oct VENIPUNCT, ROUTINE* CPT-4 19201 Nov 17, 2014 URINALYSIS, AUTO, W/O SCOPE CPT-4 18371 Nov 17, 2014 Results Name Result Date Reference Range Unit Abnormali ty Flag UA LONG DIP (IN HOUSE) CBC Summary Purpose [employer] Submission
--- OUTSIDE RECORDS SUMMARY | 2019-10-09 13:29 | XMS REPORT ---
Author Author Cherie ELLIS Organization [facility] Address [address] [place] [address] Care Team Providers Care Information Technology Data Analyst Name Role Phone ELLISDIONEVANDANA Unavailable PROBLEMS Type Condition ICD9-CM Code DST47-MV Code Onset Dates Condition S tatus SNOMED Code Problem Patient is a currently breast-feeding mother Z39.1 Active 480098123 Problem Tension headache G44.209 Active 398 611575 Problem History of section Z98.89 Ac tive 435089466 Problem Abnormal quad screen O28.0 Active 028709194 Problem Surveillance of contraceptive injection Z30.42 Active 389945488 Problem Other chronic pain G89.29 Active 8 6416448 Problem Lumbago with sciatica, right side M54.41 Active 293475304 Problem Neuropathy G62.9 Active 916406409 Problem Peptic ulcer disease K27.9 Active 44146462 Problem Lumbago with sciatica, left side M54.42 Active 015088944 Problem Epigastric pain R10.13 Active 7992 2009 ALLERGIES Substance Reaction Event Type Date Status Penicillin V Potassium rash Drug Allergy May, Activ e SOCIAL HISTORY Never Assessed PLAN OF CARE Activity Details Follow Up 3 Months, prn Reason:gastrit is, neuropathy VITAL SIGNS Height 5'3" in 2016-05-25 Weight 151.2 lbs 2016-05-25 Temperature 98.6 degrees Fahrenheit 2016-05-25 Heart Rate 82 bpm 2016-05-25 Respiratory Rate 20 2016-05-25 BMI 26.78 kg/m2 2016-05-25 Blood pressure systolic 102 mmHg 2016-05-25 Blood pressure diastolic 72 mmHg 2016-05-25 MEDICATIONS Medication Instructions Dosage Frequency Start Date End Date Duration S tatus Zyrtec Allergy 10 mg Orally Once a day 1 tablet 24h May, 201 7 May, 30 day(s) Active Neurontin 100 mg Orally Three times a day prn 1 capsule May, Active Omeprazole 40 mg Orally Once a day 1 capsule 24h May, Active RESULTS No Results PROCEDURES No Known procedures IMMUNIZATIONS No Known Immunizations MEDICAL (GENERAL) HISTORY Type Description Date Surgical History section 04/2015 Hospitalization History Childbirth/surgery
--- OUTSIDE RECORDS SUMMARY | 2019-10-09 13:29 | XMS REPORT ---
Author Author Cherie BERGER [facility] Address [address] [place] [address] Care Team Providers Care Loss Prevention Analyst Name Role Phone SIDRA BERGER Unavailable PROBLEMS Type Condition ICD9-CM Code [id number] Code Onset Dates Condition S tatus SNOMED Code Problem Tension headache G44.209 Active 398 306996 Problem Neuropathy G62.9 Active 088578954 Problem Peptic ulcer disease K27.9 Active 48689107 Problem Abnormal quad screen O28.0 Active 586060093 Problem History of section Z98.89 Ac tive 957464072 Problem Surveillance of contraceptive injection Z30.42 Active 136241692 Problem Gastroesophageal reflux disease without esophagitis K21.9 Active 582625835 Problem Constipation, unspecified constipation type K59.00 Active 23173916 Problem Lumbago with sciatica, right side M54.41 Active 230730928 Problem Lumbago with sciatica, left side M54.42 Active 715369652 Problem Other chronic pain G89.29 Active 8 7868790 Problem Lumbago with sciatica, unspecified side M54.40 Active 090484233 ALLERGIES Substance Reaction Event Type Date Status Penicillin V Potassium rash Drug Allergy July, Activ e ENCOUNTERS Encounter Location Date Diagnosis [place] [id number] [facility] [id number] [address] [place] [phone] Oct, Constipation, unspecified co nstipation type K59.00 and Gastroesophageal reflux disease without esophagitis K21.9 [facility] [address] [facility] [id number] [address] [place] [phone] July, Well woman exam Z01.419 and Muscle strain of chest wall, initial encounter S29.011A [place] [address] [address] [facility] [id number] [address] [place] [phone] July, Neuralgia M79.2 [place] [address] [address] [facility] [id number] [address] [place] [phone] July, Lumbago with sciatica, unspe cified side M54.40 and Other chronic pain G89.29 [place] [address] [address] [facility] [id number] [address] [place] [phone] 10 Apr, 2017 Cough productive of purulent sputum R05 and Hemoptysis R04.2 [place] [address] [address] [facility] [id number] [address] [place] [phone] Dec, Encounter for screening for infections with a predominantly sexual mode of transmission Z11.3 [place] [address] [place] [id number] [place] [phone] Dec, [place] [address] [place] [id number] [place] [address] Nov, Vaginal yeast infection B37. 3 ; Encounter for screening for infections with a predominantly sexual mode of transmission Z11.3 and Routine gynecological examination Z01.419 [place] [address] [address] [place] [id number] [address] [place] [address] Oct, Lumbago with sciatica, right side M54.41 ; Dysuria R30.0 ; Acute cystitis without hematuria N30.00 ; Lumbago with sciatica, left side M54.42 ; Dyshydrosis L30.1 and Vaginal yeast infection B37.3 [place] [address] [facility] [id number] [address] [place] [phone] Oct, [place] [address] [facility] [id number] [address] [place] [phone] Sep, [place] [address] [address] [place] [id number] [address] [place] [phone] Sep, Dysuria R30.0 and Yeast infe ction B37.9 [place] [address] [address] [place] [id number] [address] [place] [phone] Aug, [facility] [address] [address] 09 Aug, 2016 Other chest pain R07.89 ; Ch est pain, musculoskeletal R07.89 and 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 [address] May, Neuropathy G62.9 ; Peptic ul cer disease K27.9 and ARTURO (secretory otitis media), right H65.91 [facility] [address] [id number] [place] [id number] May, [address] [address] May, Epigastric pain R10.13 ; Naz ropathy G62.9 and Peptic ulcer disease K27.9 [facility] [address] [id number] Jan, Dental examination Z01.[address] [address] Dec, Encounter for routine gyneco logical examination with Papanicolaou smear of cervix Z01.[address] [address] Dec, Encounter to establish care Z76.89 ; Tension headache G44.209 ; Other fatigue R53.83 and Vertigo R42 [address] [address] Nov, Encounter for Depo-Provera c ontraception Z30.42 [facility] [address] [place] [id number] [place] [id number] Oct, Dental examination Z01.20 [facility] [address] [place] [address] Aug, Encounter for Depo-Provera c ontraception Z30.42 [facility] [address] [address] July, Acute low back pain without sciatica, unspecified back pain laterality M54.5 ; Rectal bleeding K62.5 and Dysuria R30.[address] [address] 03 May, 2015 Routine follow-up Z39.2 ; Encounter for counseling regarding contraception Z30.9 ; Surveillance of contraceptive injection Z30.42 ; Patient is a currently breast-feeding mother Z39.1 ; Chills (without fever) R68.83 and History of section Z98.[address] [address] Apr, Encounter for supervision of normal first , third trimester Z34.03 and 37 weeks gestation of Z3A.[address] [address] Apr, screening for stre ptococcus B Z36 ; 36 weeks gestation of Z3A.36 and Encounter for supervision of normal first , third trimester Z34.[address] [address] Mar, Encounter for supervision of normal first , third trimester Z34.03 and 34 weeks gestation of Z3A.[address] [address] Mar, Encounter for supervision of normal first , third trimester Z34.03 and 32 weeks gestation of Z3A.[address] [address] Jan, Encounter for supervision of normal first , third trimester Z34.03 ; 29 weeks gestation of Z3A.29 and Encounter for immunization Z23 [address] [address] Dec, Encounter for supervision of normal first , second trimester Z34.02 ; Encounter for immunization Z23 and with 25 completed weeks gestation Z3A.[address] [place] [address] Dec, [facility] [address] [id number] [address] [place] [phone] Dec, Encounter for supervision of normal first , second trimester Z34.02 ; Supervision of normal first V22.0 and 21 weeks gestation of Z3A.21 [facility] [address] [id number] [address] [place] [phone] Nov, [facility] [address] [id number] [address] [place] [phone] 15 Nov, 2014 Abnormal quad screen 796.5 a nd Short cervix 622.5 [place] [address] [facility] [id number] [address] [place] [phone] 11 Nov, 2014 Supervision of normal first V22.0 [facility] [address] [id number] [address] [place] [phone] Nov, Abnormal quad screen 796.5 [facility] [address] [id number] [address] [place] [phone] Nov, , normal first V22. 0 [facility] [address] [id number] [address] [place] [phone] Oct, [facility] [address] [facility] [id number] [address] [place] [phone] Oct, Diarrhea 787.91 [facility] [address] [facility] [id number] [address] [place] [phone] Oct, Diarrhea 787.91 [facility] [address] [facility] [id number] [address] [place] [phone] Oct, Diarrhea 787.91 and Pregnanc y, normal first V22.0 [facility] [address] [id number] [address] [place] [phone] Sep, , normal first V22. 0 ; Pap test, as part of routine gynecological examination V76.2 and Screen for STD (sexually transmitted disease) V74.5 [facility] [address] [facility] [id number] [address] [place] [address] Aug, Supervision of normal first V22.0 [facility] [address] [facility] [id number] [address] [place] [address] Aug, test positive V72. 42 IMMUNIZATIONS No Known Immunizations SOCIAL HISTORY Never Assessed REASON FOR VISIT leg pain--tcuppettRN, -Pt c/o bilateral leg pain/burning x 3 months that is cons tant. C/o feeling of heaviness/swollen, --Right breast lump x2 years. Is painful PLAN OF CARE Activity Details Follow Up prn with PCP Reason: VITAL SIGNS Height 63 in 2017-08-02 Weight 154.5 lbs 2017-08-02 Temperature 98.7 degrees Fahrenheit 2017-08-02 Heart Rate 76 bpm 2017-08-02 Respiratory Rate 20 2017-08-02 BMI 27.37 kg/m2 2017-08-02 Blood pressure systolic 118 mmHg 2017-08-02 Blood pressure diastolic 78 mmHg 2017-08-02 MEDICATIONS Medication Instructions Dosage Frequency Start Date End Date Duration S tatus Naproxen 500 mg Orally every 12 hrs 1 tablet with food or milk as n eeded 12h July, Sep, 30 days Active RESULTS No Results PROCEDURES No [...]
--- OUTSIDE RECORDS SUMMARY | 2019-10-09 13:29 | XMS REPORT ---
Author Author Cherie PEREZ Organization [employer] Address Unknown Phone Unavailable Care Team Providers Care Strawhat Sizer Name Role Phone SHELLY PEREZ CP Unavailable Allergies, Adverse Reactions, Alerts Substance Reaction Event Type Penicillin V Potassium rash Drug Allergy Problems Problem Type Condition Code Onset Dates Condition Statu s Problem Patient is a currently breast-feeding mother Z39.1 Active Problem History of section Z98.89 Active Problem Surveillance of contraceptive injection Z30.42 Active Problem Abnormal quad screen O28.0 Active Assessment Dental examination Z01.20 Active Medications Medication Code System Code Instructions Start Date End Date Status Dosage [place] [facility] [address]-56 5-325 MG Orally every 6 hrs Nov 04, 2015 A 2015 1 tablet as needed Clindamycin HCl [facility] [address]-12 150 MG Orally every 6 hrs Au g 2015Nov 11, 2015 2 capsules Depo-Provera [facility] [address]-78 150 MG/ML Intramuscular Alisha ry 3 months June 02, 2015 1 ml Procedures Procedure Coding System Code Date INTRAORL-PERIAPICAL 1 FILM 94442 CPT-4 D0220 Nov 04, 2015 INTRAORL-PERIAPICAL 1 FILM 87575 CPT-4 D0220 Nov 04, 2015 LTD ORAL EVALUATION - PROBLEM FOCUS CPT-4 D0140 Nov 04, 2015 Vital Signs Date/Time: Nov 04, 2015 Blood Pressure Diastolic 70 mmHg Blood Pressure Systolic 121 mmHg Height 5'3" in Results No Known Results Summary Purpose [employer] Submission
--- OUTSIDE RECORDS SUMMARY | 2019-10-09 13:29 | XMS REPORT ---
Author Author Cherie ALEXANDER Organization [employer] Address Unknown Phone Unavailable Care Team Providers Care Business Project Manager Name Role Phone RAO ALEXANDER CP Unavailable Allergies No Known Allergies Problems Problem Type Condition ICD-9 Code Onset Dates Condition Statu s Assessment Diarrhea 787.91 Active Problem , normal first V22.0 Acti ve Medications No Known Medications Procedures Procedure Coding System Code Date OVA AND PARASITES SMEARS CPT-4 76954 Nov 18, 2014 SMEAR, COMPLEX STAIN CPT-4 35051 Nov 18 5 FECES CULTURE, BACTERIA CPT-4 71219 Nov 18, 2014 Results No Known Results Summary Purpose [employer] Submission
--- OUTSIDE RECORDS SUMMARY | 2019-10-09 13:30 | XMS REPORT ---
Author Author Cherie RODAS [facility] [employer] Address Unknown Phone Unavailable Care Team Providers Care Supervisor Stitching Department Name Role Phone ANGEL RODAS Unavailable Allergies No Known Allergies Problems Problem Type Condition Code Onset Dates Condition Statu s Problem Encounter for supervision of normal firs t , second trimester Z34.02 Active Problem Abnormal quad screen 796.5 Active Medications Medication Code System Code Instructions Start Date End Date Status Dosage Sirena [facility] [address]-51 4 MG Orally every 8 hours as needed Dec 1 tablet Results No Known Results Summary Purpose [employer] Submission
--- OUTSIDE RECORDS SUMMARY | 2019-10-09 13:30 | XMS REPORT ---
Author Author Cherie ELLIS Organization [facility] Address [address] [place] [address] Care Team Providers Care Housing And Residence Life Director Name Role Phone ELLISDIONEVANDANA Unavailable PROBLEMS Type Condition ICD9-CM Code XTM20-WR Code Onset Dates Condition S tatus SNOMED Code Problem Patient is a currently breast-feeding mother Z39.1 Active 758216895 Problem Tension headache G44.209 Active 398 935720 Problem History of section Z98.89 Ac tive 023050145 Problem Abnormal quad screen O28.0 Active 940814383 Problem Surveillance of contraceptive injection Z30.42 Active 280431976 Problem Other chronic pain G89.29 Active 8 6265634 Problem Lumbago with sciatica, right side M54.41 Active 106564891 Problem Neuropathy G62.9 Active 303554295 Problem Peptic ulcer disease K27.9 Active 01492410 Problem Lumbago with sciatica, left side M54.42 Active 604841555 Problem Epigastric pain R10.13 Active 7992 2009 ALLERGIES Substance Reaction Event Type Date Status Penicillin V Potassium rash Drug Allergy May, Activ e SOCIAL HISTORY No smoking Hx information available PLAN OF CARE Activity Details Follow Up 3 Weeks Reason:peptic ulcer disease VITAL SIGNS Height 5'3" in 2016-05-04 Weight 152.7 lbs 2016-05-04 Temperature 98.6 degrees Fahrenheit 2016-05-04 Heart Rate 100 bpm 2016-05-04 Respiratory Rate 22 2016-05-04 BMI 27.05 kg/m2 2016-05-04 Blood pressure systolic 132 mmHg 2016-05-04 Blood pressure diastolic 78 mmHg 2016-05-04 MEDICATIONS Medication Instructions Dosage Frequency Start Date End Date Duration S tatus Neurontin 100 mg Orally Three times a day prn 1 capsule May, Active Biaxin 500 MG Orally every 12 hrs 1 tablet 12h May, May, 10 day(s) Active Amoxicillin 500 MG Orally every 12 hrs 2 capsule 12h May, 201 7 13 May, 2016 10 day(s) Active Omeprazole 40 mg Orally Once a day 1 capsule 24h May, 14 days Active RESULTS Name Result Date Reference Range A1C (IN HOUSE) 2016-05-04 A1C IN HOUSE 5.3 4.3 - 5.6 % Previous A1c N/A Lot [id number] Exp date 01/2018 H PYLORI (IN HOUSE) 2016-05-04 H. PYLORI pos Control + Lot # [id number] Exp date 12/2016 TEST, URINE (IN HOUSE) RESULTS NEG Lot # [id number] Control + Exp date 06/2017 UA LONG DIP (IN HOUSE) 2016-05-04 Lot # [id number] Exp date 04/2017 Clarity cloudy Color orange Odor none GLU Neg NICHOLAS Neg KET Neg SG 1.020 BLO Neg pH 7.0 Protein Neg URO 0.2 NIT Neg LATISHA Neg Lot # Exp date CBC 2016-05-04 WBC 8.5 3.4-10.8 RBC 5.06 3.77-5.28 Hemoglobin 14.3 11.1-15.9 Hematocrit 43.0 34.0-46.6 MCV 85 79-97 MCH 28.3 26.6-33.0 MCHC 33.3 31.5-35.7 RDW 13.6 12.3-15.4 Platelets 265 150-379 Neutrophils 72 Lymphs 19 Monocytes 8 Eos 1 Basos 0 Neutrophils (Absolute) 6.1 1.4-7.0 Lymphs (Absolute) 1.6 0.7-3.1 Monocytes(Absolute) 0.7 0.1-0.9 Eos (Absolute) 0.1 0.0-0.4 Baso (Absolute) 0.0 0.0-0.2 Immature Granulocytes 0 Immature Grans (Abs) 0.0 0.0-0.1 CMP 2016-05-04 Glucose, Serum 84 65-99 BUN 7 6-20 Creatinine, Serum 0.56 0.57-1.00 eGFR If NonAfricn Am 130 >59 eGFR If Africn Am 150 >59 BUN/Creatinine Ratio 13 8-20 Sodium, Serum 141 134-144 Potassium, Serum 4.0 3.5-5.2 Chloride, Serum 100 96-106 Carbon Dioxide, Total 23 18-29 Calcium, Serum 9.2 8.7-10.2 Protein, Total, Serum 7.2 6.0-8.5 Albumin, Serum 4.9 3.5-5.5 Globulin, Total 2.3 1.5-4.5 A/G Ratio 2.1 1.1-2.5 Bilirubin, Total 0.5 0.0-1.2 Alkaline Phosphatase, S 134 39-117 AST (SGOT) 24 0-40 ALT (SGPT) 17 0-32 Xray : KUB (IN HOUSE) 2016-05-04 PROCEDURES Procedure Date Ordered Related Diagnosis Body Site IMMUNOASSAY,INFECTIOUS AGENT May 04, 2016 COMPLETE CBC W/AUTO DIFF WBC May 04, 2016 Office Visit, Est Pt., Level 4 May 04, 2016 GLYCATED HEMOGLOBIN TEST May 04, 2016 VENIPUNCT, ROUTINE* May 04, 2016 X-RAY EXAM OF ABDOMEN May 04, 2016 COMPREHEN METABOLIC PANEL May 04, 2016 URINE TEST May 04, 2016 URINALYSIS, AUTO, W/O SCOPE May 04, 2016 IMMUNIZATIONS No Known Immunizations
--- OUTSIDE RECORDS SUMMARY | 2019-10-09 13:30 | XMS REPORT ---
Author Author Cherie ALEXANDER Organization [facility] Address [address] [place] [address] Care Team Providers Care Development And Housing Director Name Role Phone RAO ALEXANDER Unavailable PROBLEMS Type Condition ICD9-CM Code NUS81-DN Code Onset Dates Condition S tatus SNOMED Code Problem Surveillance of contraceptive injection Z30.42 Active 633069121 Problem Tension headache G44.209 Active 398 993560 Problem History of section Z98.89 Ac tive 591927399 Problem Abnormal quad screen O28.0 Active 563827588 Problem Other chronic pain G89.29 Active 8 2969717 Problem Lumbago with sciatica, unspecified side M54.40 Active 294480027 Problem Neuropathy G62.9 Active 493360606 Problem Peptic ulcer disease K27.9 Active 39832226 Problem Lumbago with sciatica, right side M54.41 Active 502610885 Problem Lumbago with sciatica, left side M54.42 Active 422336795 ALLERGIES No Information ENCOUNTERS Encounter Location Date Diagnosis [place] [address] [place] [id number] [place] [phone] July, [place] [address] [place] [id number] [place] [phone] 04 Jul, 2017 Lumbago with sciatica, unspe cified side M54.40 and Other chronic pain G89.29 [place] [address] [place] [id number] [place] [address] 10 Apr, 2017 Cough productive of purulent sputum R05 and Hemoptysis R04.2 [place] [address] [place] [id number] [place] [phone] 12 Dec, 2016 Encounter for screening for infections with a predominantly sexual mode of transmission Z11.3 [place] [address] [address] Dec, [place] [address] [address] Nov, Vaginal yeast infection B37. 3 ; Encounter for screening for infections with a predominantly sexual mode of transmission Z11.3 and Routine gynecological examination Z01.419 [place] [address] [address] Oct, Lumbago with sciatica, right side M54.41 ; Dysuria R30.0 ; Acute cystitis without hematuria N30.00 ; Lumbago with sciatica, left side M54.42 ; Dyshydrosis L30.1 and Vaginal yeast infection B37.3 [place] [address] [address] Oct, [place] [address] [address] Sep, [place] [address] [address] Sep, Dysuria R30.0 and Yeast infe ction B37.9 [place] [address] [address] Aug, [facility] [address] [address] Aug, Other chest pain R07.89 ; Ch est pain, musculoskeletal R07.89 and 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 [address] [address] Dec, Encounter for routine gyneco logical examination with Papanicolaou smear of cervix Z01.419 [place] [address] [address] Dec, Encounter to establish care Z76.89 ; Tension headache G44.209 ; Other fatigue R53.83 and Vertigo R42 [place] [address] [address] Nov, Encounter for Depo-Provera c ontraception Z30.42 [facility] [address] [place] [id number] [place] [phone] Oct, Dental examination Z01.[address] [facility] [address] [address] 03 Aug, 2015 Encounter for Depo-Provera c ontraception Z30.42 [facility] [address] [address] July, Acute low back pain without sciatica, unspecified back pain laterality M54.5 ; Rectal bleeding K62.[address] [facility] [address] [place] [id number] [place] [address] 03 May, 2015 Routine follow-up Z39.2 ; Encounter for counseling regarding contraception Z30.9 ; Surveillance of contraceptive injection Z30.42 ; Patient is a currently breast-feeding mother Z39.1 ; Chills (without fever) R68.83 and History of section Z98.89 [place] [id number] [place] [address] Apr, Encounter for supervision of normal first , third trimester Z34.03 and 37 weeks gestation of Z3A.37 [place] [address] [facility] [id number] [address] [place] [address] Apr, screening for stre ptococcus B Z36 ; 36 weeks gestation of Z3A.36 and Encounter for supervision of normal first , third trimester Z34.03 [place] [address] [address] [facility] [id number] [address] [place] [address] Mar, Encounter for supervision of normal first , third trimester Z34.03 and 34 weeks gestation of Z3A.34 [place] [address] [address] [facility] [id number] [address] [place] [address] Mar, Encounter for supervision of normal first , third trimester Z34.03 and 32 weeks gestation of Z3A.32 [place] [address] [place] [id number] [place] [phone] Jan, Encounter for supervision of normal first , third trimester Z34.03 ; 29 weeks gestation of Z3A.29 and Encounter for immunization Z23 [place] [address] [address] [facility] [id number] [address] [place] [address] Dec, Encounter for supervision of normal first , second trimester Z34.02 ; Encounter for immunization Z23 and with 25 completed weeks gestation Z3A.25 [place] [address] [address] [facility] [id number] [address] [place] [address] Dec, [place] [address] [place] [id number] [place] [phone] Dec, Encounter for supervision of normal first , second trimester Z34.02 ; Supervision of normal first V22.0 and 21 weeks gestation of Z3A.21 [place] [address] [address] [facility] [id number] [address] [place] [address] Nov, [place] [address] [address] [facility] [id number] [address] [place] [address] Nov, Abnormal quad screen 796.5 a nd Short cervix 622.5 [facility] [address] [id number] [address] [place] [phone] 11 Nov, 2014 Supervision of normal first V22.0 [place] [address] [address] [facility] [id number] [address] [place] [address] Nov, Abnormal quad screen 796.5 [place] [address] [address] [facility] [id number] [address] [place] [address] Nov, , normal first V22. 0 [place] [address] [id number] [address] [place] [address] Oct, [place] [address] [address] [facility] [id number] [address] [place] [address] Oct, Diarrhea 787.91 [place] [address] [address] [facility] [id number] [address] [place] [address] Oct, Diarrhea 787.91 [place] [address] [address] [facility] [id number] [address] [place] [phone] Oct, Diarrhea 787.91 and Pregnanc y, normal first V22.0 [place] [address] [address] [facility] [id number] [address] [place] [address] Sep, , normal first V22. 0 ; Pap test, as part of routine gynecological examination V76.2 and Screen for STD (sexually transmitted disease) V74.5 [place] [address] [address] [facility] [id number] [address] [place] [address] Aug, Supervision of normal first V22.0 [place] [address] [address] [facility] [id number] [address] [place] [phone] Aug, test positive V72. 42 IMMUNIZATIONS No Known Immunizations SOCIAL HISTORY Never Assessed REASON FOR VISIT med per lab result PLAN OF CARE VITAL SIGNS MEDICATIONS Medication Instructions Dosage Frequency Start Date End Date Duration S tatus Diflucan 150 MG Orally one time 1 tablet Dec, Active RESULTS No Results PROCEDURES No Known [...]
--- OUTSIDE RECORDS SUMMARY | 2019-10-09 13:30 | XMS REPORT ---
Author Author Cherie RODAS [facility] eClinicalWorks Address Unknown Phone Unavailable Care Team Providers Care Senior Net Engineer Name Role Phone ANGEL RODAS Unavailable Allergies No Known Allergies Problems Problem Type Condition Code Onset Dates Condition Statu s Problem Abnormal quad screen O28.0 Active Assessment screening for streptococcus B Z36 Active Problem Encounter for supervision of normal firs t , third trimester Z34.03 Active Assessment 36 weeks gestation of Z3A.36 Active Assessment Encounter for supervision of normal firs t , third trimester Z34.03 Active Medications No Known Medications Procedures Procedure Coding System Code Date DETECT AGNT MULT, DNA, AMPLI CPT-4 08379 Apr 12, 2015 Office Visit, Est Pt., Level 2 CPT-4 64136 J 2015 URINE-NO MICRO CPT-4 12377 Apr 12, 2015 Vital Signs Date/Time: Apr 12, 2015 Temperature 97.0 F Weight 162.2 lbs Height 5'3" in Blood Pressure Diastolic 76 mmHg Blood Pressure Systolic 110 mmHg Results Name Result Date Reference Range Unit Abnormali ty Flag UA OB DIP (IN HOUSE) ----Glucose negative [id number] ----Protein trace [id number] Summary Purpose eClinicalWorks Submission
--- OUTSIDE RECORDS SUMMARY | 2019-10-09 13:30 | XMS REPORT | Continuity of Care Document ---
Demographics Preferred Language Unknown Marital Status Unknown Druze Affiliation Unknown Race Unknown Ethnic Group Unknown Author Organization Unknown Address Unknown Phone Unavailable Allergies Active Description Code Type Severity Reaction Onset Reported/Identified Relationship to Patient Clinical Status Yes No Known Drug Allergies [id number] Drug Allergy Unknown N/A 10/05/2019 Medications There is no data. Problems Date Dx Coded Attending Type Code Diagnosis Diagnosed By 12/29/2012 SONYA NICOLAS APRN Ot 459.89 07/30/2014 JAYE ZHENG, TRISTON Carrasco Ot 729.5 12/09/2014 TRISTON ECE MD Ot 729.5 12/09/2014 TRISTON CEE MD Ot 628.9 12/09/2014 RC IZQUIERDO APRN Ot V22.0 12/31/2014 TRISTON CEE MD Ot 729.5 12/31/2014 TRISTON CEE MD Ot 628.9 12/31/2014 RC IZQUIERDO APRN Ot V22.0 12/31/2014 ANGEL RODAS MD Ot 796 .5 12/31/2014 TRISTON CEE MD Ot 729.5 12/31/2014 JAYE ZHENG, TRISTON Carrasco Ot 628.9 12/31/2014 RC IZQUIERDO APRN Ot V22.0 12/31/2014 ANGEL RODAS MD Ot 796 .5 01/24/2015 RC IZQUIERDO APRN Ot V22.0 01/24/2015 ANGEL RODAS MD Ot 796 .5 01/24/2015 JAYE ZHENG, TRISTON Carrasco Ot 628.9 01/28/2015 TRISTON CEE MD Ot 628.9 01/28/2015 RC IZQUIERDO APRN Ot V22.0 01/28/2015 ANGEL RODAS MD Ot 796 .5 04/24/2015 SHARDA BUCKNER MD Ot O32.8XX0 MATERNAL CARE FOR OTH MALPRESENTATION OF 04/24/2015 SHARDA BUCKNER MD Ot O42.92 FULL-TERM GENET ROM, UNSP TIME BETW RUPTU 04/24/2015 DUDLEY ZHENG, SHARDA Parish Ot Z37.0 SINGLE LIVE 04/24/2015 DUDLEY ZHENG, SHARDA Parish Ot Z3A.37 37 WEEKS GESTATION OF 04/25/2015 JAYE ZHENG, TRISTON Carrasco Ot 729.5 04/25/2015 JAYE ZHENG, TRISTON Carrasco Ot 628.9 04/25/2015 RC IZQUIERDO AERONAUTICAL ENGINEERING TEACHER Ot V22.0 04/25/2015 ANGEL RODAS MD Ot 796 .5 06/07/2015 JAYE ZHENG, TRISTON Carrasco Ot 729.5 06/07/2015 JAYE ZHENG, TRISTON Carrasco Ot 628.9 06/07/2015 RC IZQUIERDO AERONAUTICAL ENGINEERING TEACHER Ot V22.0 06/07/2015 ANGEL RODAS MD Ot 796 .5 05/26/2019 JAYE ZHENG, TRISTON Carrasco Ot 628.9 FEMALE INFERTILITY NOS 05/26/2019 RC IZQUIERDO AERONAUTICAL ENGINEERING TEACHER Ot V22.0 SUPERVIS NORMAL 1ST PREG 05/26/2019 ANGEL RODAS MD Ot 796 .5 ABN SCREENING 05/29/2019 JAYE ZHENG, TRISTON Carrasco Ot 628.9 FEMALE INFERTILITY NOS 05/29/2019 RC IZQUIERDO AERONAUTICAL ENGINEERING TEACHER Ot V22.0 SUPERVIS NORMAL 1ST PREG 05/29/2019 ANGEL RODAS MD N Ot 796 .5 ABN SCREENING 05/29/2019 TRISTON CEE MD Ot 628.9 FEMALE INFERTILITY NOS 05/29/2019 RC IZQUIERDO AERONAUTICAL ENGINEERING TEACHER Ot V22.0 SUPERVIS NORMAL 1ST PREG 05/29/2019 ANGEL RODAS MD Ot 796 .5 ABN SCREENING 06/01/2019 FENECH DO, ANGELA S Ot Z36.9 ENCOUNTER FOR SCREENING, UNSPE 06/01/2019 FENECH DO, ANGELA S Ot Z3A.20 20 WEEKS GESTATION OF 06/02/2019 FENECH DO ANGELA S Ot Z36.9 ENCOUNTER FOR SCREENING, UNSPE 06/02/2019 FENECH DO, ANGELA S Ot Z3A.20 20 WEEKS GESTATION OF 06/25/2019 FENECH DO, ANGELA S Ot Z36.9 ENCOUNTER FOR SCREENING, UNSPE 06/25/2019 FENECH DO, ANGELA S Ot Z3A.20 20 WEEKS GESTATION OF 10/06/2019 JAYE ZHENG, TRISTON Carrasco Ot 628.9 FEMALE INFERTILITY NOS 10/06/2019 FELECIA, RC A AERONAUTICAL ENGINEERING TEACHER Ot V22.0 SUPERVIS NORMAL 1ST PREG 10/06/2019 ADRIANNA ZHENG, ANGEL Leyva Ot 796 .5 ABN SCREENING 10/06/2019 ANGELA JUAREZ DO Ot Z36.9 ENCOUNTER FOR SCREENING, UNSPE 10/06/2019 ANGELA JUAREZ DO Ot Z3A.20 20 WEEKS GESTATION OF Procedures Code Description Performed By Per formed On [id number] 04/22/2015 Results Test Result Range Genital Culture, Routine - 01/18/16 16:1 5 Genital Culture, Routine Note CBC With Differential/Platelet - 7 12:04 WBC 8.5 x10E3/uL 3.4-10.8 RBC 5.06 x10E6/uL 3.77-5.28 Hemoglobin 14.3 g/dL 11.1-15.9 Hematocrit 43.0 % 34.0-46.6 MCV 85 fL 79-97 MCH 28.3 pg 26.6-33.0 MCHC 33.3 g/dL 31.5-35.7 RDW 13.6 % 12.3-15.4 Platelets 265 x10E3/uL 150-379 Neutrophils 72 % Lymphs 19 % Monocytes 8 % Eos 1 % Basos 0 % Neutrophils (Absolute) 6.1 x10E3/uL 1.4- 7.0 Lymphs (Absolute) 1.6 x10E3/uL 0.7-3.1 Monocytes(Absolute) 0.7 x10E3/uL 0.1-0.9 Eos (Absolute) 0.1 x10E3/uL 0.0-0.4 Baso (Absolute) 0.0 x10E3/uL 0.0-0.2 Immature Granulocytes 0 % Immature Grans (Abs) 0.0 x10E3/uL 0.0-0. 1 Comp. Metabolic Panel (14) - 05/04/16 12 :04 Glucose, Serum 84 mg/dL 65-99 BUN 7 mg/dL 6-20 Creatinine, Serum 0.56 mg/dL 0.57-1.00 eGFR If NonAfricn Am 130 mL/min/1.73 >59 eGFR If Africn Am 150 mL/min/1.73 >5 9 BUN/Creatinine Ratio 13 8-20 Sodium, Serum 141 mmol/L 134-144 Potassium, Serum 4.0 mmol/L 3.5-5.2 Chloride, Serum 100 mmol/L 96-106 Carbon Dioxide, Total 23 mmol/L 18-29 Calcium, Serum 9.2 mg/dL 8.7-10.2 Protein, Total, Serum 7.2 g/dL 6.0-8.5 Albumin, Serum 4.9 g/dL 3.5-5.5 Globulin, Total 2.3 g/dL 1.5-4.5 A/G Ratio 2.1 1.1-2.5 Bilirubin, Total 0.5 mg/dL 0.0-1.2 Alkaline Phosphatase, S 134 IU/L 39-117 AST (SGOT) 24 IU/L 0-40 ALT (SGPT) 17 IU/L 0-32 Urine Culture, Routine - 11/28/16 13:48 Urine Culture, Routine Note CULTURE, URINE - 11/28/16 13:48 Urine Culture, Routine Final report NRG Result 1 No growth NRG Genital Culture, Routine - 12/26/16 16:4 1 Genital Culture, Routine Note CULTURE, GENITAL - 12/26/16 16:41 Genital Culture, Routine Final report N RG Result 1 Yeast isolated. NRG SUREPATH PAP RFX HPV mRNA E6/E7 - 15:10 CLINICAL INFORMATION: NRG LMP: NRG PREV. PAP: NRG PREV. BX: NRG SOURCE: [employer] NRG STATEMENT OF ADEQUACY: NRG INTERPRETATION/RESULT: NRG INTERNATIONAL RELATIONS TEACHER: NRG COMMENT NRG HCG, QUANTITATIVE - 03/18/19 09:39 HCG, TOTAL, QN 934900 mIU/mL NRG HCG, QUAL REFLEX TO QUANT - 03/18/19 09: 39 HCG, TOTAL, QL POSITIVE See Note: Coronavirus SARS-CoV-2 SO 2019 - 0 08:05 Coronavirus Ab [Units/volume] in Serum Negative Negative Complete blood count (CBC) with automate d white blood cell (WBC) differential - 10/09/19 11:40 Blood leukocytes automated count (number/volume) 11.1 10*3/uL 4.3-11.0 Blood erythrocytes automated count (number/volume) 4.69 10*6/uL 4.35-5.85 Venous blood hemoglobin measurement (mass/volume) 13.4 g/dL 11.5-16.0 Blood hematocrit (volume fraction) 40 % 35-52 Automated erythrocyte mean corpuscular volume 86 [ foz_us] 80-99 Automated erythrocyte mean corpuscular h emoglobin (mass per erythrocyte) 29 pg 25-34 Automated erythrocyte mean corpuscular h emoglobin concentration measurement (mass/volume) 33 g/dL 32-36 Automated erythrocyte distribution width ratio 14. 1 % 10.0- 14.5 Automated blood platelet count (count/volume) 201 10*3/uL 130-400 Automated blood platelet mean volume measurement 11.1 [foz_us] 7.4-10.4 Automated blood neutrophils/100 leukocytes 75 % 42-75 Automated blood lymphocytes/100 leukocytes 15 % 12-44 Blood monocytes/100 leukocytes 9 % 0-12 Automated blood eosinophils/100 leukocytes 1 % 0-10 Automated blood basophils/100 leukocytes 0 % 0-10 Blood neutrophils automated count (number/volume) 8.3 10*3 1.8-7.8 Blood lymphocytes automated count (number/volume) 1.6 10*3 1.0-4.0 Blood monocytes automated count (number/volume) 1. 0 10*3 0.0-1.0 Automated eosinophil count 0.1 10*3/uL 0 .0-0.3 Automated blood basophil count (count/volume) 0.0 10*3/uL 0.0-0.1 Encounters ACCT No. Visit Date/Time Discharge Status Pt. Type Provider Facility Loc./Unit Complaint [id number] 05/05/2016 08:36:00 Document Registration [id number] 12/01/2016 03:07:00 Document Registration [id number] 10/06/2019 05:41:00 020 10:36:00 DIS Outpatient ANGELA JUAREZ DO [facility] PREOP REPEAT [id number] 05/29/2019 12:10:00 020 23:59:59 CLS Outpatient ANGELA JUAREZ DO [facility] RAD [id number] 04/22/2015 22:30:00 016 16:25:00 DIS Inpatient SHARDA BUCKNER MD [facility] LDRP [id number] 12/14/2014 09:48:00 015 23:59:59 CLS Outpatient ANGEL RODAS MD [facility] RAD ABNORMAL QUAD SCREEN [id number] 10/18/2014 14:26:00 015 23:59:59 CLS Outpatient FELECIA, RC Kyle AERONAUTICAL ENGINEERING TEACHER [facility] RAD DATING/SUPERVISION OF NORMAL FIRST [id number] 07/30/2014 13:05:00 015 23:59:59 CLS Outpatient TRISTON CEE MD [facility] RAD INFERTILITY [id number] 05/18/2013 12:22:00 014 23:59:59 CLS Outpatient TRISTON CEE MD [facility] RAD [id number] 12/29/2012 15:12:00 013 17:27:00 DIS Emergency SONYA NICOLAS AERONAUTICAL ENGINEERING TEACHER [facility] ER [id number] 10/09/2019 13:00:00 P EN Preadmit FENECH DO, ANGELA S REPEAT [id number] 12/30/2016 13:05:00 Document Registration [id number] 06/02/2019 15:45:00 06/02/2019 23:59:5 9 CLS Outpatient ANGEL RODAS MD [facility] [id number] 03/18/2019 09:00:00 Document Registration [id number] 09/15/2018 14:45:00 Document Registration [id number] 12/26/2016 13:00:00 Document Registration [id number] 11/28/2016 13:40:00 Document Registration [id number] 01/21/2016 13:05:00 Document Registration
--- OUTSIDE RECORDS SUMMARY | 2019-10-09 13:30 | XMS REPORT ---
Author Author Cherie PEREZ Organization [facility] Address Unknown Care Team Providers Care Old Testament Professor Name Role Phone SHELLY PEREZ Unavailable PROBLEMS Type Condition ICD9-CM Code PNO07-DI Code Onset Dates Condition S tatus SNOMED Code Problem History of section Z98.89 Ac tive 097123819 Problem Abnormal quad screen O28.0 Active 507577103 Problem Neuropathy G62.9 Active 935047938 Problem Peptic ulcer disease K27.9 Active 16780530 Problem Surveillance of contraceptive injection Z30.42 Active 602566675 Problem Patient is a currently breast-feeding mother Z39.1 Active 374318394 Problem Epigastric pain R10.13 Active 7992 2009 Problem Tension headache G44.209 Active 398 395364 ALLERGIES Substance Reaction Event Type Date Status Penicillin V Potassium rash Drug Allergy Jan, Activ e SOCIAL HISTORY No smoking Hx information available PLAN OF CARE Activity Details Follow Up prn Reason:endo crown VITAL SIGNS Height 5'3" in 2016-02-07 Blood pressure systolic 130 mmHg 2016-02-07 Blood pressure diastolic 95 mmHg 2016-02-07 MEDICATIONS Unknown Medications RESULTS No Results PROCEDURES Procedure Date Ordered Related Diagnosis Body Site Dental no charge Feb 07, 2016 IMMUNIZATIONS No Known Immunizations
--- OUTSIDE RECORDS SUMMARY | 2019-10-09 13:30 | XMS REPORT ---
Author Author Cherie ALEXANDER Organization eClinical[employer] Address Unknown Phone Unavailable Care Team Providers Care Manager Servicing Name Role Phone RAO ALEXANDER CP Unavailable Allergies, Adverse Reactions, Alerts Substance Reaction Event Type Penicillin V Potassium rash Drug Allergy Problems Problem Type Condition ICD-9 Code Onset Dates Condition Statu s Assessment Diarrhea 787.91 Active Assessment , normal first V22.0 Acti ve Problem , normal first V22.0 Acti ve Medications Medication Code System Code Instructions Start Date End Date Status Dosage [facility] [place] [id number] 28-0.8 MG Orally daily September 28, 2014 1 Procedures Procedure Coding System Code Date Office Visit, Est Pt., Level 4 CPT-4 59141 A 2014 Vital Signs Date/Time: Nov 16, 2014 Temperature 98.0 F Weight 141.1 lbs Height 5'3" in BMI 24.99 Index Blood Pressure Diastolic 76 mmHg Blood Pressure Systolic 120 mmHg Cardiac Monitoring Heart Rate 78 bpm Results No Known Results Summary Purpose eClinicalWorks Submission
--- OUTSIDE RECORDS SUMMARY | 2019-10-09 13:30 | XMS REPORT ---
Author Author Cherie RODAS Organization [facility] Address [address] [place] [address] Care Team Providers Care Rnfa Name Role Phone ANGEL RODAS Unavailable PROBLEMS Type Condition ICD9-CM Code QPU75-QL Code Onset Dates Condition S tatus SNOMED Code Problem Surveillance of contraceptive injection Z30.42 Active 050616711 Problem Patient is a currently breast-feeding mother Z39.1 Active 388959557 Assessment Encounter for Depo-Provera contraception Z30.42 07 Dec, 2015 Active 802057911 Problem History of section Z98.89 Ac tive 526236988 Problem Abnormal quad screen O28.0 Active 512003232 ALLERGIES No Known Allergies SOCIAL HISTORY No smoking Hx information available PLAN OF CARE VITAL SIGNS MEDICATIONS No Known Medications RESULTS Name Result Date Reference Range TEST, URINE (IN HOUSE) 2015-12-07 RESULTS NEG Lot # [id number] Control + Exp date PROCEDURES Procedure Date Ordered Related Diagnosis Body Site URINE TEST Dec 07, 2015 DEPO PROVERA (150 MG/ML) Dec 07, 2015 THER/PROPH/DIAG INJ, SC/IM Dec 07, 2015 IMMUNIZATIONS Vaccine Route Administration Date Status DEPO PROVERA (150 MG/ML) IM Intramuscular Dec 07, 2015 Admini stered
--- OUTSIDE RECORDS SUMMARY | 2019-10-09 13:30 | XMS REPORT ---
Author Author Cherie RODAS Organization [employer] Address Unknown Phone Unavailable Care Team Providers Care Mill Representative Name Role Phone ANGEL RODAS Unavailable Allergies No Known Allergies Problems Problem Type Condition ICD-9 Code Onset Dates Condition Statu s Assessment , normal first V22.0 Acti ve Problem , normal first V22.0 Acti ve Medications No Known Medications Procedures Procedure Coding System Code Date ALPHA-FETOPROTEIN, SERUM CPT-4 27622 Nov INHIBIN A CPT-4 35686 Dec 03, 2014 URINE-NO MICRO CPT-4 22736 Dec 03, 2014 CHORIONIC GONADOTROPIN TEST CPT-4 40862 Dec 03, 2014 ASSAY OF ESTRIOL CPT-4 62295 Dec 03, 2014 VENIPUNCT, ROUTINE* CPT-4 76144 Dec 03, 201 5 Office Visit, Est Pt., Level 2 CPT-4 06416 S ept 2014 Vital Signs Date/Time: Dec 03, 2014 Temperature 98.0 F Weight 143.7 lbs Height 5'3" in BMI 25.45 Index Blood Pressure Diastolic 76 mmHg Blood Pressure Systolic 118 mmHg Cardiac Monitoring Heart Rate 80 bpm Results Name Result Date Reference Range Unit Abnormali ty Flag UA OB DIP (IN HOUSE) Summary Purpose eClinicalWorks Submission
--- OUTSIDE RECORDS SUMMARY | 2019-10-09 13:30 | XMS REPORT ---
Author Author Cherie RODAS [facility] eClinicalWorks Address Unknown Phone Unavailable Care Team Providers Care Video Camera Operator Name Role Phone ANGEL RODAS CP Unavailable Allergies No Known Allergies Problems Problem Type Condition Code Onset Dates Condition Statu s Problem Encounter for supervision of normal firs t , second trimester Z34.02 Active Assessment Encounter for supervision of normal first , second trimester Z34.02 Active Problem Abnormal quad screen 796.5 Active Assessment Supervision of normal first V22.0 Active Assessment 21 weeks gestation of Z3A.21 Active Medications No Known Medications Procedures Procedure Coding System Code Date CULTURE, BACTERIA, OTHER CPT-4 13659 Dec 31, 2014 Office Visit, Est Pt., Level 2 CPT-4 96809 O 2014 URINE-NO MICRO CPT-4 16610 Dec 31, 2014 Vital Signs Date/Time: Dec 31, 2014 Temperature 98.3 F Weight 143.7 lbs Height 5'3" in BMI 25.45 Index Blood Pressure Diastolic 76 mmHg Blood Pressure Systolic 120 mmHg Cardiac Monitoring Heart Rate 78 bpm Results Name Result Date Reference Range Unit Abnormali ty Flag UA OB DIP (IN HOUSE) CULTURE, GENITAL Summary Purpose eClinicalWorks Submission
[2019-10-09] MEDS ORDERED: CATHETER FLUSH 10 ML SYR IV SCH (14:00)
[2019-10-09] MEDS: DOCUSATE SODIUM 100 MG (COLACE) CAP PO SCH (19:59)
[2019-10-09] MEDS ORDERED: DCS100C PO (21:36)
[2019-10-09] MEDS ORDERED: IBUP-844 PO (21:36)
[2019-10-09] MEDS ORDERED: HYDR-83 PO (21:36)
--- NOTE | 2019-10-09 21:38 | Discharge Inst-Women's Service ---
Discharge Inst-Women's Serv Depart Medication/Instructions New, Converted or Re-Newed RX: RX on Chart Final Diagnosis POD 2 RLTCS Problems Reviewed?: Yes Consults/Follow Up Additional Follow Up: Yes Orders/Referrals Dr. Yanez in 7-10 days and in 6 weeks Activity Activity: Activity as Tolerated Driving Instructions: No Driving for 1 Week NO SMOKING: NO SMOKING Nothing Inside Vagina: No Douching, No Carbon, No Tampons Diet Discharge Diet: No Restrictions Symptoms to Report to : Bleeding Excessive, Pain Increased, Fever Over 101 Degrees F, Vaginal Bleeding Increase, Questions/Concerns For Any Problems or Questions: Contact Your Physician Skin/Wound Care Infection Signs and Symptoms: Increased Redness, Foul Odor of Wound, Increased Drainage, Skin Itchy or Has a Rash, Increased Swelling, Temperature Above 101 F Operative Area Clean and Dry: Keep Incision Clean/Dry Stitches/[place]/Dermabond: Dermabond, Care of Stitches Bathing Instructions: ANGELA Watson DO Oct 09, 2019 21:38
--- NOTE | 2019-10-09 23:03 | OPERATIVE REPORT ---
DATE OF SERVICE: PREOPERATIVE DIAGNOSES: 1. A 29-year-old G2, P1 at 38 weeks and 6 days gestation. 2. Previous section. 3. Breech presentation. 4. Gestational diabetes mellitus A1. POSTOPERATIVE DIAGNOSES: 1. A 29-year-old G2, P1 at 38 weeks and 6 days gestation. 2. Previous section. 3. Breech presentation. 4. Gestational diabetes mellitus A1. 5. Roberto Carlos breech presentation. SURGEON: Branden Juarez DO LAMP SHADE MAKER: Cris Milner DNP was necessary for manipulation and retraction throughout the procedure. ANESTHESIA: Spinal. ESTIMATED BLOOD LOSS: 300 mL. URINE OUTPUT: 175 mL clear at the end of procedure. FLUIDS: 1000 mL lactated Ringer's solution. FINDINGS: A live male weighing 7 pounds 1 ounce, Apgars of 8 and 9. Grossly normal appearing uterus, bilateral fallopian tubes and ovaries. SPECIMEN SENT: None. INDICATIONS FOR PROCEDURE: This 29-year-old female is a patient who sought care in my office. Her care was complicated by gestational diabetes that was controlled with diet modification. Ultrasound in the third trimester revealed breech presentation and this was followed as well as biophysical profile due to the patient's gestational diabetes. After a 37-week appointment, we discussed performing a repeat , although we had planned on a trial of labor after . Risks of this have been reviewed with the patient prior with her previous surgery. We reviewed them once more risk of bleeding, infection, damage to surrounding structures including, but not limited to bowel, bladder, ureter, kidneys, possible need for reoperation, postoperative complications, recovery timeframe and even . After everything was discussed with the patient in detail and all of her questions were answered, consent was obtained in the preoperative area after breech presentation was still confirmed. OPERATIVE REPORT IN DETAIL: Once in the operating room, spinal analgesia was found to be adequate, placed in supine position with leftward tilt, prepped and draped in normal sterile fashion. Timeout was performed and anesthesia was tested. I then proceeded with making a Pfannenstiel skin incision to the preexisting scar using knife and carried down to underlying fascia using Bovie cautery. Fascial incision extended laterally using Bovie cautery. Superior aspect of fascial incision was then grasped with Isaias clamps, tented up and dissected off the underlying rectus muscles. The inferior aspect of the fascial incision was then grasped with Isaias clamps, tented up and dissected off the underlying rectus muscles. Rectus muscle was then dissected down the midline using Zapata scissors, which exposed the peritoneum, which I entered bluntly and extended using blunt traction. Armin ring retractor was placed in the peritoneal incision, which offers excellent lateral sidewall retraction. I then made a low transverse incision to the vesicouterine peritoneum and dissected off the lower uterine segment, creating a bladder flap. I then proceeded with myotomy until membranes visualized, which fornix extended the uterine incision laterally and superiorly using bandage scissors. Amniotomy was performed using Allis clamp. Clear fluid was noted. The was found in the breech presentation with the buttocks were elevated up to the incision and delivered through the incision up to the torso where the legs are straight, but then reduced through the incision. I then delivered the arms by sweeping them across the chest and the head is delivered by lifting the body and flexing the head through the incision after which the nares and oropharynx were bulb suctioned. Umbilical cord was doubly clamped and cut and handed off to waiting nurses in attendance. Cord blood was collected. Three-vessel cord with intact placenta was delivered spontaneously thereafter. IV Pitocin was initiated to facilitate uterine contraction. Uterine fundus became firmer with bimanual massage. Uterus was exteriorized and cleared of all endometrial clots and debris. I then proceeded to close the uterine incision using 0 Vicryl suture in a locked fashion. Second layer of imbricating 0 Monocryl was placed. Excellent hemostasis was noted after doing this. I then placed the uterus back in the pelvis and copiously irrigated the pelvis using normal saline. Once again, there was no active bleeding noted from any of my dissection planes. I placed Interceed antiadhesive over my low transverse incision and proceeded with removing the Armin ring retractor. I then closed the peritoneum using 3-0 Vicryl suture in running fashion. The rectus muscle reapproximated using 3-0 Vicryl suture in interrupted fashion. The fascia was reapproximated using 0 Vicryl suture in running fashion. Subcutaneous tissue was reapproximated with 3-0 plain interrupted subcutaneous stitch and the skin reapproximated using 4-0 Monocryl running subcuticular. Dermabond was applied to incision and sterile dressing with adhesive white tape. The patient tolerated the procedure well and sent to recovery in stable condition. Lap and sponge counts were correct at the end of the procedure. Instrument counts were correct as well. Two grams of Ancef given preoperatively for infection prophylaxis. Job ID: [id number] DocumentID: [id number] Dictated Date: 10/09/2019 13:45:34 Retail Sales Merchandiser Date: 10/09/2019 23:02:17 Dictated By: BRANDEN JUAREZ DO
[2019-10-10 00:10] VITALS: BP 99/56
[2019-10-10] MEDS: KETOROLAC 30 MG/ML VIAL IV SCH ×2 (01:49→08:59)
[2019-10-10 04:55] VITALS: BP 90/53
[2019-10-10 05:34] LABS: BASOPHILS % (AUTO) 0 % (0-10); EOSINOPHILS % (AUTO) 0 % (0-10); HEMATOCRIT 34 % (35-52); HEMOGLOBIN 11.6 G/DL (11.5-16.0); LYMPHOCYTES % (AUTO) 13 % (12-44); MEAN CORPUSCULAR HEMOGLOBIN 29 PG (25-34); MEAN CORPUSCULAR HGB CONC 34 G/DL (32-36); MEAN CORPUSCULAR VOLUME 86 FL (80-99); MEAN PLATELET VOLUME 10.4 FL (7.4-10.4); MONOCYTES # (AUTO) 1.7 X 10^3 (0.0-1.0); MONOCYTES % (AUTO) 11 % (0-12); NEUTROPHILS # (AUTO) 11.9 X 10^3 (1.8-7.8); NEUTROPHILS % (AUTO) 76 % (42-75); PLATELET COUNT 199 10^3/uL (130-400); RED CELL DISTRIBUTION WIDTH 14.1 % (10.0-14.5); WHITE BLOOD COUNT 15.6 10^3/uL (4.3-11.0)
--- NOTE | 2019-10-10 07:15 | Postpartum Progress Note ---
Note Note Day # 1 Subjective: Patient is without complaints. Ambulating, voiding. Tolerating a regular diet without nausea or vomiting. Normal lochia. Pain is well controlled with oral pain medications. Objective: Physical Exam: General - Alert and oriented, no apparent distress Abdomen - Soft, appropriately tender to palpation, non-distended, fundus firm at umbilicus Extremities - no edema, negative Perez's bilaterally Incision- c/d/i Assessment: POD 1 RLTCS Plan: Routine care. Encourage breast feeding. Encourage ambulation. Ferrous sulfate supplementation. Plan for discharge tomorrow Vitals - Labs Vital Signs - I&O Vital Signs Date Time Temp Pulse Resp B/P (MAP) Pulse Ox O2 Delivery O2 Flow Rate FiO2 10/10/19 04:55 36.5 75 16 90/53 (65) 96 Room Air 10/10/19 00:10 36.4 72 16 99/56 (70) 97 Room Air 10/09/19 20:03 36.2 79 16 104/63 (77) 98 Room Air 10/09/19 17:18 94 Room Air 10/09/19 16:22 36.2 82 20 97 Room Air 10/09/19 15:45 36.1 78 20 109/65 (80) Room Air 10/09/19 15:05 36.3 18 120/61 (80) 100 Room Air 10/09/19 15:05 Room Air 10/09/19 14:52 36.3 18 110/74 (86) 100 Room Air 10/09/19 14:52 Room Air 10/09/19 14:38 Room Air 10/09/19 14:38 36.3 18 115/79 (91) 100 Room Air 10/09/19 14:24 Room Air 10/09/19 14:23 36.2 18 107/78 (88) 100 Room Air 10/09/19 14:09 Room Air 10/09/19 14:09 36.2 18 104/69 (81) 94 Room Air I & O 10/10/19 07:00 Intake Total 2850 ml Output Total 375 ml Balance 2475 ml Labs Laboratory Tests 10/09/19 11:40: White Blood Count 11.1H, Red Blood Count 4.69, Hemoglobin 13.4, Hematocrit 40, Mean Corpuscular Volume 86, Mean Corpuscular Hemoglobin 29, Mean Corpuscular Hemoglobin Concent 33, Red Cell Distribution Width 14.1, Platelet Count 201, Mean Platelet Volume 11.1H, Neutrophils (%) (Auto) 75, Lymphocytes (%) (Auto) 15, Monocytes (%) (Auto) 9, Eosinophils (%) (Auto) 1, Basophils (%) (Auto) 0, Neutrophils # (Auto) 8.3H, Lymphocytes # (Auto) 1.6, Monocytes # (Auto) 1.0, Eosinophils # (Auto) 0.1, Basophils # (Auto) 0.0 10/10/19 05:25: White Blood Count 15.6H, Red Blood Count 3.97L, Hemoglobin 11.6, Hematocrit 34L, Mean Corpuscular Volume 86, Mean Corpuscular Hemoglobin 29, Mean Corpuscular Hemoglobin Concent 34, Red Cell Distribution Width 14.1, Platelet Count 199, Mean Platelet Volume 10.4, Neutrophils (%) (Auto) 76H, Lymphocytes (%) (Auto) 13, Monocytes (%) (Auto) 11, Eosinophils (%) (Auto) 0, Basophils (%) (Auto) 0, Neutrophils # (Auto) 11.9H, Lymphocytes # (Auto) 2.0, Monocytes # (Auto) 1.7H, Eosinophils # (Auto) 0.0, Basophils # (Auto) 0.0 ANGELA JUAREZ DO Oct 10, 2019 07:15
[2019-10-10] MEDS: DOCUSATE SODIUM 100 MG (COLACE) CAP PO SCH ×2 (08:59→22:07)
[2019-10-10 09:03] VITALS: BP 109/58
--- NOTE | 2019-10-10 12:25 | Anesthesia-Regional Post-Op ---
Regional Patient Condition Mental Status: Alert, Oriented x3 Circulation: Same as Pre-Op Headache: Absent Sensation: Full Recovery Motor Block: Absent Post Op Complications Complications None Follow Up Care/Instructions Patient Instructions None needed. Anesthesia/Patient Condition Patient is doing well, no complaints, stable vital signs, no apparent adverse anesthesia problems. No complications reported per nursing. EBER HERMAN CRNA Oct 10, 2019 12:25
[2019-10-10] MEDS: IBUPROFEN 600 MG (MOTRIN) TAB PO SCH ×2 (15:46→22:07)
[2019-10-10 15:47] VITALS: BP 107/58
--- NOTE | 2019-10-10 20:50 | NUR ---
Infant nursing. Patient instructed to call when finished. Will complete assessment then.
[2019-10-10 21:55] VITALS: BP 110/71
[2019-10-11] MEDS: IBUPROFEN 600 MG (MOTRIN) TAB PO SCH ×2 (03:58→10:00)
[2019-10-11 04:00] VITALS: BP 99/61
[2019-10-11 08:00] VITALS: BP 98/57
--- NOTE | 2019-10-11 09:04 | Postpartum Progress Note ---
IAN PARRYMED STUDENT 10/11/19 0904: Note Note Day # 2 Subjective: Patient is without complaints. Ambulating, voiding. Tolerating a regular diet without nausea or vomiting. Normal lochia. Pain is well controlled with oral pain medications. Objective: Physical Exam: General - Alert and oriented, no apparent distress Abdomen - Soft, appropriately tender to palpation, non-distended, fundus firm at umbilicus Extremities - no edema, negative Perez's bilaterally Incision - clean/dry/intact Assessment: POD 2 RLTCS Plan: Routine care. Encourage breast feeding. Encourage ambulation. Continue vitamin. Plan for discharge today Vitals - Labs Vital Signs - I&O Vital Signs Date Time Temp Pulse Resp B/P (MAP) Pulse Ox O2 Delivery O2 Flow Rate FiO2 10/11/19 04:00 36.4 83 16 99/61 (74) 97 Room Air 10/10/19 21:55 36.1 87 18 110/71 (84) 97 Room Air 10/10/19 15:47 36.2 80 18 107/58 (74) 97 Room Air 10/10/19 09:03 36.6 89 18 109/58 (75) 96 Room Air ANGELA JUAREZ DO 10/11/19 0907: Note Note Verification and Attestation of Medical Student E/M Service A medical student performed and documented this service in my presence. I reviewed and verified all information documented by the medical student and made modifications to such information, when appropriate. I personally performed the physical exam and medical decision making. Angela Juarez Oct 11, 2019,09:07 IAN PARRYMED STUDENT Oct 11, 2019 09:04 ANGELA JUAREZ DO Oct 11, 2019 09:07
[2019-10-11] MEDS: DOCUSATE SODIUM 100 MG (COLACE) CAP PO SCH (10:00)
--- NOTE | 2019-10-11 10:00 | NUR ---
c/o left lower abd pain, "5" on 1-10 scale. motrin po per orders given for c/o. will con't to monitor.
[2019-10-11 12:00] VITALS: BP 100/68
== END 2019-10-11 13:15 | disposition home or self-care (01) | DRG 788 ==
LOC: LDRP 11:04
PROVIDERS: ADMIT Obstetrics & Gynecology; ATTEND Obstetrics & Gynecology
PROC: 10D00Z1 Extraction of Products of Conception, Low, Open Approach (ICD-10-PCS; principal; 2019-10-09 12:55)
DX: O34.211 Maternal care for low transverse scar from previous cesarean delivery (principal); O24.420 Gestational diabetes mellitus in childbirth, diet controlled; O32.1XX0 Maternal care for breech presentation, not applicable or unspecified; Z37.0 Single live birth; Z3A.38 38 weeks gestation of pregnancy
CPT/HCPCS: 36415; 85025; 86850; 86900; 86901; 94664; 94760